=== PATIENT | male | born 1950 | race Caucasian/White ===

== ENCOUNTER 2016-10-16 13:09 | Observation (INO) | payer OTHER ==
[~2016-10-16] VITALS: Ht 190.5 cm; Wt 76.2 kg
--- NOTE | 2016-10-16 14:43 | DIAGNOSTIC IMAGING REPORT ---
PROCEDURE: CT HEAD WITHOUT CONTRAST INDICATION: MENTAL STATUS CHANGE TECHNIQUE: Noncontrast axial images with sagittal and coronal reformations. COMPARISON: None. FINDINGS: Brain and ventricles are normal. No evidence of an acute process or hemorrhage. Sinuses and mastoids are normal. IMPRESSION: 1. Negative head CT. 2. Findings discussed with Dr. Tomi Gaytan at [address] scans at this facility use dose modulation, iterative reconstruction, and/or weight-based dosing when appropriate to reduce radiation dose to as low as reasonably achievable.
--- NOTE | 2016-10-16 16:09 | DIAGNOSTIC IMAGING REPORT ---
PROCEDURE: CTA THORAX ABDOMEN INDICATION: Chest and abdominal pain. Cardiac history. Assess for dissection. TECHNIQUE: 116 ml of Isovue 370 injected intravenously and axial images were obtained through the entire thorax and abdomen with 3D MIP sagittal and coronal reformations. COMPARISON: None. FINDINGS: THORACIC VESSELS: Mild calcified atheromatous changes. No evidence of aneurysm or dissection. Central pulmonary vessels are normal and there is no evidence of pulmonary embolus, although subtle emboli in the periphery may be difficult to exclude. THORAX: Status post mediastinotomy and coronary artery bypass graft. Heart and mediastinum are normal size. Lungs are clear. Moderate mucosal thickening of the mid and distal esophagus. ABDOMEN VESSELS: Mild to moderate atheromatous changes of the aorta, most pronounced distally). No evidence of aneurysm or dissection. Mild calcified atheromatous change of the celiac access with marked calcified atheromatous changes of the splenic artery. Mild calcified atheromatous change of the superior mesenteric artery without stenosis. Renal arteries appear normal. ABDOMEN: Gallbladder, liver, spleen, pancreas, and kidneys are normal. There is a 20% subacute compression fracture of the superior endplate at T12 with mild to moderate degenerative changes of the lower lumbar spine. IMPRESSION: THORAX VESSELS: 1. Mild calcified atheromatous changes of the thoracic aorta, but no evidence of aneurysm or dissection. 2. No evidence of central pulmonary embolus. THORAX: 1. Status post coronary artery bypass graft. 2. Moderate mucosal thickening of the distal esophagus (consider reflux esophagitis). ABDOMINAL VESSELS: 1. Mild to moderate calcified atheromatous changes of the abdominal aorta. No evidence of aneurysm or dissection. 2. Mild calcified atheromatous changes of the mesenteric vessels with marked calcified changes of the splenic artery. ABDOMEN: 1. There is a 20% subacute or old compression fracture of the T12 vertebral body. 2. Otherwise negative CT abdomen. Findings were discussed with Dr. oTmi Gaytan. All CT scans at this facility use dose modulation, iterative reconstruction, and/or weight-based dosing when appropriate to reduce radiation dose to as low as reasonably achievable.
--- NOTE | 2016-10-16 17:21 | ED ORDER SUMMARY ---
..... Patient: CLARISSA PAYNE OrderSheet [facility] VisitID: [id number] [address] [place] [address] 66y, M Registration Date/Time: 10/16/2016 ORDER SHEET Weight: 95.2 kg Allergies: Unknown GENERAL ORDERS: Chest 2V Urgent (13:10/16/2016 Guido CARBAJAL) (Ack 13:40 Christopher) Securities Research Analyst (Continuous) (13:10/16/2016 Guido CARBAJAL) (13:35 MWinterer R.N.) CT Head w Cont (Yes) (pending) Urgent (13:10/16/2016 Guido CARBAJAL) (Ack 13:40 Christopher) (Cancelled: Other13:55 Guido CARBAJAL) CTA Thorax/Abdomen (Yes) (pending) Urgent (:10/16/2016 Guido CARBAJAL) (Ack 13:40 Christopher) (15:47 Medina) Cardiac Panel Stat (13:10/16/2016 Guido CARBAJAL) (Ack 13:37 Christopher) (13:47 KPage-Kuchan R.N.) BNP Urgent (13:10/16/2016 Guido CARBAJAL) (Ack 13:37 Christopher) (13:47 KPage-Kuchan R.N.) D-Dimer Urgent (13:10/16/2016 Guido CARBAJAL) (Ack 13:37 Christopher) (13:47 KPage-Kuchan R.N.) Amylase Urgent (13:10/16/2016 Guido CARBAJAL) (Ack 13:37 Christopher) (13:47 KPage-Kuchan R.N.) UA-Culture if indicated Urgent (13:10/16/2016 Guido CARBAJAL) (Ack 13:37 Christopher) (15:58 KPage-Kuchan R.N.) TSH Urgent (13:10/16/2016 Guido CARBAJAL) (Ack 13:37 Christopher) (13:47 KPage-Kuchan R.N.) Urine Drug Screen Urgent (13:33 10/16/2016 Guido CARBAJAL) (Ack 13:39 Christopher) (15:58 KPashaggy-Benito R.N.) Ethyl Alcohol Urgent (13:33 10/16/2016 Guido CARBAJAL) (Ack 13:39 Christopher) (13:47 KPashaggy-Renettan R.N.) CRP Urgent (13:33 10/16/2016 Guido CARBAJAL) (Ack 13:39 Christopher) (13:47 KPashaggy-Renettan R.N.) PCT (Procalcitonin) Urgent (13:33 10/16/2016 Guido CARBAJAL) (Ack 13:39 Christopher) (13:47 KPaTamara R.N.) Pulse oximeter (13:33 10/16/2016 Guido CARBAJAL) (13:35 MWinterer R.N.) EKG - ER Stat (13:33 10/16/2016 Guido CARBAJAL) (13:35 MWinterer R.N.) CT Head wo Cont Urgent (13:55 10/16/2016 Guido CARBAJAL) (Ack 14:00 Christopher) (15:47 Medina) MEDICATION ORDERS: GI Cocktail WHITE PO 50 mL (NOW) (16:10 10/16/2016 Guido CARBAJAL) (16:33 Lindsey R.N.) IV FLUIDS: IV NS : initial bolus 500 mL (1000 mL/hr), then 250 mL/hr for 2h (NOW); Routine (13:30 10/16/2016 Guido CARBAJAL) (Ack 13:47 Lindsey R.N.) (13:56 Lindsey R.N.) Zofran IV 4 mg (NOW) (13:33 10/16/2016 Guido CARBAJAL) (Ack 13:47 Lindsey R.N.) (13:56 KPaTamara R.N.) ORDER SHEET NOTES: [Electronically signed by Tomi Gaytan MD (18:05 10/16/2016)] [Electronically signed by Jasmin Mcdermott R.N. (21:37 10/16/2016)] [Electronically locked/signed by Jasmin Mcdermott R.N. (21:37 10/16/2016)]
--- NOTE | 2016-10-16 17:21 | ED NURSING NOTES ---
Clinical Report - [facility] [address] [place] [address] 10/16/2016 13:14 Patient: CLARISSA PAYNE TRIAGE Triage time 13:17 Oct 16 2016. Chief Complaint: ABDOMINAL PAIN and (admit staff called out for a pt dropped off by grandson that was unable to provide birthdate. pt reports "my grandaujavierter kicked me out this morning" pt c/o abd pain and reports hx of pancreatitis- pt a/o to self and place). --13:30 Jasmin Mcdermott R.N. 13:17 10/16/16. BP: 163/97. HR: 128. RR: 21. O2 saturation: 96%. Temp: 98.4 F. Main-Baird pain scale: 8/10. Additional comments: pt unable to comprehend the pain scale. --13:30 Jasmin Mcdermott R.N. Weight: 95.2 kg. Height/Length: 75 inches. BMI: 26.2. --13:29 Jasmin Mcdermott R.N. Medications Sertraline HCl Oral (rec call from daughter with med list, no dosages provided). --14:00 Jasmin Mcdermott R.N. Lisinopril Oral. --14:01 Jasmin Mcdermott R.N. Plavix Oral. --14:01 Jasmin Mcdermott R.N. Metoprolol Tartrate Oral. --14:01 Jasmin Mcdermott R.N. Levodopa/carvidopa. --14:02 Jasmin Mcdermott R.N. Advair Diskus Inhalation. --14:02 Jasmin Mcdermott R.N. Albuterol Sulfate ER Oral. --14:02 Jasmin Mcdermott R.N. Aspirin Oral. --14:02 Page-Kuchan, Karyol, R.N. Diazepam Oral. --14:02 Jasmin Mcdermott R.N. The following entry was struck by Jasmin Mcdermott R.N., 14:00 (10/16/16) Reason - other. <<STRICKEN ENTRY-- Unknown. --13:29 Jasmin Mcdermott R.N. --END STRIKE>>. Allergies Unknown. --13:29 Jasmin Mcdermott R.N. History Arrived by private vehicle, and accompanied by (pt dropped off by grandson). Onset. (unknown). He has had abdominal pain. Treatment ANIMAL CARE TECHNICIAN: (unknown). SOCIAL HX: Smoker- current status unknown (presents with cigarettes in his pocket). Alcohol use. (denies). He has had contact with a sick individual. (unknown). SELF HARM ASSESSMENT: A self harm assessment was performed. Unable to assess the patient in regard to the question "Do you have thoughts of harming or killing yourself?". FALL RISK ASSESSMENT: Fall risk assessment completed. Risk factors identified include patient age greater than 65 years and impairment of mobility and cognition. Fall interventions initiated. Patient placed on stretcher. Side rails up x2. Brakes on Bed in low position. Patient visible from nurses' station and identified as a fall risk by ID band. Call light in reach of patient. Instructed not to get up without assistance. FUNCTIONAL ASSESSMENT: Functional assessment performed: uses walker. pt reports he uses a fww, however "they didn't bring it with me" referring to family members, pt consistent in his story that his grandaughter "kicked me out this morning". --13:30 Jasmin Mcdermott R.N. PROBLEMS: Unknown. --13:30 Jasmin Mcdermott R.N. Heart Disease. Depression. Hypertension. Parkinson's Disease. --14:04 Jasmin Mcdermott R.N. ADDITIONAL SURGERIES: Unknown. --13:30 Jasmin Mcdermott R.N. Interventions ID band on patient. --13:30 Jasmin Mcdermott R.N. PHYSICAL ASSESSMENT To room via wheelchair. Patient gowned. GENERAL / NEURO / PSYCH: Appears anxious. The patient is disoriented to place and time. HEENT: Mucous membranes are pink. RESPIRATORY: Respirations not labored. CVS: Cardiac rhythm: sinus tachycardia. GI / : Abdomen soft. Bowel sounds within normal limits. SKIN: Skin is warm. Skin is slightly diaphoretic. --13:31 Jasmin Mcdermott R.N. NURSING PROGRESS NOTES Cardiac rhythm: sinus tachycardia. alarm security or surveillance monitor, pulse oximeter and NIBP monitor placed on patient; manager monitoring- Lead II, aVF and V5; monitor alarms on. Patient identifiers checked. Call light placed in reach. Side rails up x 2. Bed placed in lowest position. Brakes of bed on. --13:31 Jasmin Mcdermott R.N. 13:27 10/16/2016 Site #1 started via IV in the right hand with an 18g angiocath; one attempt. Blood drawn: rainbow set. Labeled in the presence of the patient and sent to the lab. Saline lock flushed with 10 mL saline. --13:32 Jasmin Mcdermott R.N. 13:31 10/16/16. Glucose: 115. --13:46 Jasmin Mcdermott R.N. 13:50 10/16/2016 Zofran (Ondansetron HCl) IVP 4 mg given. via site #1. Allergies verified and confirmed 5 rights. IV patency established. IV site checked: no pain, redness, or swelling. IV flushed thoroughly pre- and post-medication administration. IVP given by RN. --13:56 Jasmin Mcdermott R.N. 13:51 10/16/2016 Started bag #1 500 mL IV Fluids IV NS (Saline); at 500 mL/hr via site #1. Allergies verified and confirmed 5 rights. IV patency established. IV site checked: no pain, redness, or swelling. IV flushed thoroughly pre- and post-medication administration. Completed per protocol. --13:56 Jasmin Mcdermott R.N. ( lithopone charger placed call to pts family, correction it is his daughter [place] and pt does confirm. pts mother called and pt refused to speak with her). --14:05 Jasmin Mcdermott R.N. 14:12 10/16/16. ( Placed call to patient's family (phone number left on a piece of paper in patient's pocket). Person answering states she is [place], the patient's daughter. She states the patient has been living with her but has become more emotional over the past 4-5 days. She states her father has been refusing medications, having outbursts and yelling at her, stating he doesn't want to live with her anymore. She states he "snapped" and insisted that he was leaving. Daughter tearful on the phone. States she had her (Gulshan) drive pt to the ED. She was able to give med list and some mhx.). --14:12 Geraldine Bunch R.N. 14:17 10/16/2016 Site #2 started via IV in the left wrist with an 18g angiocath; one attempt. Saline lock flushed with 10 mL saline. --14:22 Jasmin Mcdermott R.N. ( pt required iv site above wrist for study, 2nd site placed). --14:22 Jasmin Mcdermott R.N. Patient identifiers checked. Call light placed in reach. Side rails up x 2. Bed placed in lowest position. Brakes of bed on. --14:23 Jasmin Mcdermott R.N. Cardiac rhythm: sinus tachycardia. --14:29 Jasmin Mcdermott R.N. 14:28 10/16/16. BP: 124/72. HR: 101. RR: 19. O2 saturation: 94%. --14:29 Jasmin Mcdermott R.N. 16:33 10/16/2016 GI COCKTAIL WHITE (Simethicone) PO 50 mL given. Allergies verified and confirmed 5 rights. --16:33 Jasmin Mcdermott R.N. Patient identifiers checked. Call light placed in reach. Side rails up x 2. Bed placed in lowest position. Brakes of bed on. ( pt voided 350ml dark yellow urine). --17:25 Jasmin Mcdermott R.N. 16:53 10/16/2016 Zofran IVP Response: no adverse reaction symptoms are the same. The patient feels the same. --17:53 Jasmin Mcdermott R.N. 17:53 10/16/2016 IV Fluids IV NS Discontinued: infused. Total amount infused: 1000 mL. IV patency established. IV site checked: no pain, redness, or swelling. IV flushed thoroughly. --17:53 Jasmin Mcdermott R.N. 17:53 10/16/2016 GI COCKTAIL WHITE PO Response: no adverse reaction pain is gone now. Symptoms have improved the patient feels better. --17:53 Jasmin Mcdermott R.N. DISPOSITION / DISCHARGE Report was given to a nurse via a phone call. Report included patient's care, treatment, medications, reviewed medication reconcilliation, and condition (including any recent changes or anticipated changes). All questions were answered. Report was acknowledged and care was transferred. (Ronda CHEN). Patient's personal items include: shirt, pants, coat and shoes, bagged/tagged; items were placed in belongings bag and transported with the patient. --17:43 Jasmin Mcdermott R.N. 17:38 10/16/16. BP: 140/76. HR: 97. RR: 17. O2 saturation: 95%. Main-Baird pain scale: 0/10. --17:43 Jasmin Mcdermott R.N. Locked/Released at 10/16/2016 21:37 by Jasmin Mcdermott R.N.
--- NOTE | 2016-10-16 17:21 | ED CLINICAL REPORT ---
Clinical Report - Physicians/Mid Levels [address] [place] [address] 10/16/2016 13:14 Patient: CLARISSA PAYNE Time Seen: 13:20 Oct 16 2016. Arrived- By private vehicle. Historian- patient (Dropped off by Grandson who left the area.). History limited by altered mental status, poor comprehension, vague historian and confusion. Physical Exam limited by altered mental status, poor comprehension and confusion. CPT: ER phys charges level 5 plus (#[id number]). EKG interpretation (#[id number]). HISTORY OF PRESENT ILLNESS Chief Complaint: ABDOMINAL PAIN and Confusion. At its maximum, severity described as moderate. When seen in the E.D., severity described as moderate. Modifying factors- worsened by movement. Not relieved by anything. It is described as located in the epigastric area and in the upper abdomen. This started today and is still present. The patient has had nausea, loss of appetite and vomiting. No diarrhea. No recent travel. Similar symptoms previously: None. Recent medical care: Not recently seen/assessed. REVIEW OF SYSTEMS No constipation, black stools, hematemesis, difficulty with urination or pain with urination. No urinary frequency, fever, headache or sore throat or throat. No chest pain, difficulty breathing, cough, joint pain or skin rash. No chills, back pain, diabetic symptoms or easy bruising. All systems otherwise negative, except as recorded above. PAST HISTORY Unable to get a history from the patient or daughter. Sternal scar present. Heart Disease. Depression. Hypertension. Parkinson's Disease. No history of peptic ulcer. No history of gallstones. Medications: Diazepam Oral. Aspirin Oral. Albuterol Sulfate ER Oral. Advair Diskus Inhalation. Levodopa/carvidopa. Metoprolol Tartrate Oral. Plavix Oral. Lisinopril Oral. Sertraline HCl Oral (rec call from daughter with med list, no dosages provided). Allergies: Unknown. SOCIAL HISTORY Light tobacco smoker (cigarette)- less than 1/2 a pack per day. No alcohol use. ADDITIONAL NOTES The nursing notes have been reviewed. PHYSICAL EXAM Vital Signs: 10/16/2016 13:17 BP: 163/97. HR: 128. RR: 21. O2 saturation: 96%. Temp: 98.4 F. Main-Baird pain scale: 8/10. Appearance: Alert. No acute distress. Eyes: Pupils equal, round and reactive to light. Eyes normal inspection. ENT: Dry mucous membranes present. Pharynx normal. Neck: Normal inspection. No carotid bruit, lymphadenopathy or meningeal signs. CVS: Normal heart rate and rhythm. Heart sounds normal. Pulses normal. No cardiac murmur. Respiratory: No respiratory distress. Breath sounds normal. Chest nontender. Abdomen: Soft. Moderate tenderness in the epigastric area with guarding present. Bowel sounds normal. No mass. Femoral pulses equal. (no bruit heard.). Back: Normal inspection. No CVA tenderness. Skin: Skin warm. Normal skin color. No rash. Extremities: Extremities exhibit normal ROM. No calf tenderness. No lower extremity edema. Neuro: Moderately altered mental status: confused. Patient slow to respond. Eyes open spontaneously. Best verbal response: disoriented. Best motor response: obeys commands. No motor deficit. No sensory deficit. LABS, X-RAYS, AND EKG EKG: Normal sinus rhythm. Rate: 134. Tachycardia. Normal P waves. Incomplete RBBB. Q waves in lead II, III and aVF consistent with inferior infarction. Left axis deviation. Non-specific ST segment / T wave abnormalities. ST depression in lead I, V3, V4, V5 and V6. Prior EKG unavailable. The study has been interpreted contemporaneously. The study has been independently viewed by me. The EKG appears to be a good tracing. CT Head: No acute disease. Abdominal CT: Normal study. Reflux with esophageal thickening. T12 old compression fracture. Abdominal CT performed with IV contrast. The study was interpreted by the radiologist and discussed with the radiologist. Chest CT: Lungs normal. Great vessels normal. Mediastinum normal. No infiltrate, pneumothorax, aortic dissection or aneurysm present or pulmonary embolism. (Mucosal thickening distal esophagus.). Chest CT performed with contrast. The study was independently viewed by me, interpreted by the radiologist and discussed with the radiologist. Laboratory Tests: UA-Culture if indicated: (PHILIP: 10/16/2016 15:51) ( MsgRcvd 10/16/2016 16:20) Final results Test Result Flag Units (Reference) URINE COLOR YELLOW URINE APPEARANCE CLEAR URINE GLUCOSE NEGATIVE (NEGATIVE) URINE BILIRUBIN ICTOTEST NEGATIVE (NEGATIVE) URINE KETONE 1+ (NEGATIVE) URINE SPECIFIC GRAVITY 1.010 (1.010-1.030) URINE PH 6.0 (5.0-8.0) URINE PROTEIN NEGATIVE (NEGATIVE) URINE UROBILINOGEN 0.2 EU/dL (0.2-1.0) URINE NITRITE NEGATIVE (NEGATIVE) URINE BLOOD NEGATIVE (NEGATIVE) URINE LEUK ESTERASE NEGATIVE (NEGATIVE) URINE RBC 0-1 rbc/hpf (0-1) URINE WBC 0-1 wbc/hpf (0-1) URINE EPITHELIAL CELLS RARE EPI/hpf (0-5) URINE BACTERIA NONE SEEN (NONE SEEN) URINE COMMENT CULT NOT INDICATED URINE CULTURES ARE SET-UP BASED ON THE FOLLOWING CRITERIA:POSITIVE NITRITEPOSITIVE LEUKOCYTE ESTERASEGREATER THAN 10 WHITE BLOOD CELLSMODERATE (2+) OR GREATER BACTERIA CBC w Diff: (PHILIP: 10/16/2016 13:31) ( [facility] 10/16/[place] 13:54) Final results Test Result Flag Units (Reference) WHITE BLOOD COUNT 13.1 H K/uL (4.5-11.5) RED BLOOD COUNT 5.21 M/uL (4.50-5.90) HEMOGLOBIN 17.0 gm/dL (13.5-17.5) HEMATOCRIT 51.1 % (41.0-53.0) MEAN CELL VOLUME 98 fL (80-100) MEAN CORPUSCULAR HGB 33 pg (26-34) MEAN CORPUSCULAR HGB CONC 33 g/dL (31-37) RED CELL DISTRIBUTION WIDTH 13.4 % (11.6-14.8) PLATELET COUNT 203 K/uL (150-400) NEUTROPHIL % 73.9 % (50-75) LYMPH % 17.0 L % (25-40) MONO % 8.5 % (3-14) EOSINOPHIL % 0.3 % (0-4) BASOPHIL % 0.3 % (0-2) [id number]: (PHILIP: 10/16/2016 13:31) ( [facility] 10/16/2016 14:24) Final results Test Result Flag Units (Reference) D-DIMER QUANTITATIVE 0.30 ug/mLFEU (0.27-0.52) The primary value of this quantitative assay relates toits negative predictive value (i.e. exclusion) of pulmonaryembolism/deep vein thrombosis/DIC.Elevated levels of d-dimer may also occur with:, age, cancer, inflammation, liver disease,post-op, infection, hematoma, coronary disease, peripheralarteriopathy, bleeding disorders and thrombolytic treatment.Results should be correlated with other clinical andradiological data.Testing Methodology: Latex Immunoassay Urine Drug Screen: (PHILIP: 10/16/2016 15:51) ( MsgRcvd 10/16/2016 16:21) Final results Test Result Flag Units (Reference) AMPHETAMINE/METHAMPHETAMINE NEGATIVE (NEGATIVE) BARBITURATE NEGATIVE (NEGATIVE) BENZODIAZEPINE POSITIVE H (NEGATIVE) CANNABINOID POSITIVE H (NEGATIVE) COCAINE NEGATIVE (NEGATIVE) ECSTASY NEGATIVE (NEGATIVE) METHADONE NEGATIVE (NEGATIVE) OPIATE NEGATIVE (NEGATIVE) The urine drug screen is a qualitative screening test fordrug overdose and abuse. All screen results should beconsidered as presumptive.Drugs screened for are as follows:BenzodiazepinesCocaineAmphetamines/MetamphetaminesTHC (Tetrahydrocannabinol)OpiatesBarbituratesEcstasyMethadonePositive results are unconfirmed. For confirmation, notifythe lab for the specimen to be sent to the reference lab.All confirmations must be performed by a differentmethodology.The ingestion of natural herbal and plant productscontaining Ephedra/Ephedra metabolites can produce in urineone or more substances capable of cross reacting withamphetamine/methamphetamine immunoassays. These testsprovide a preliminary result only. A more specificalternative chemical method must be used to obtain aconfirmed analytical result. BNP: (PHILIP: 10/16/2016 13:31) ( MsgRcvd 10/16/2016 14:26) Final results Test Result Flag Units (Reference) B-TYPE NATRIURETIC PEPTIDE 32 pg/ml (5-100) [id number]: (PHILIP: 10/16/2016 13:31) ( MsgRcvd 10/16/2016 16:08) Final results Test Result Flag Units (Reference) PROCALCITONIN <0.5 ng/mL (0-0.5) PCT Concentration: Interpretation : Risk/option for action PCT <=0.5 ng/mL : Systemic : Low risk forinfection(sepsis): progression to severeis not likely. : systemic infection.Local bacterial : CAUTION-PCT levelsinfection is : below 0.5 ng/mL do notpossible. : exclude an infection,because localizedinfections (withoutsystemic signs) may beassociated with suchlow levels. If PCT ismeasured very earlyafter a bacterialchallenge (usually <6hours), these valuesmay still be low. Inthis case PCT shouldbe re-assessed 6-24hours later. PCT >0.5 and : Systemic infection: Moderate risk for<= 2 ng/mL : (sepsis) is : progression to severepossible, but : systemic infection.other conditions : The patient should beare known to : closely monitoredelevate PCT. : both clinically andby re-assessing PCTwithin 6-24 hours. PCT > 2 ng/mL : Systemic infection: High risk for(sepsis) is likely: progression to severeunless other : systemic infection.causes are known. : PCT >= 10 ng/mL : Important systemic: High likelihood ofinflammatory : severe sepsis orresponse, almost : septic shock.exclusively due to:severe bacterial :sepsis or septic :shock. : Amylase: (PHILIP: 10/16/2016 13:31) ( [facility] 10/16/2016 14:56) Final results Test Result Flag Units (Reference) AMYLASE 20 L U/L (25-115) ETHYL ALCOHOL < 3 L mg/dL (3-10) THYROID STIMULATING HORMONE 1.941 uIU/mL (0.30-3.74) C-REACTIVE PROTEIN 0.2 mg/dL (0.0-0.9) CHEM 13 PANEL: (PHILIP: 10/16/2016 13:31) ( [facility] 10/16/2016 14:23) Final results Test Result Flag Units (Reference) GLUCOSE 121 H mg/dL (70-110) BUN 24 H mg/dL (7-18) CREATININE 1.6 H mg/dL (0.6-1.3) Estimated GFR 46.19 mL/min Estimated GFR- 55.99 mL/min Note: Persistent reduction over 3 months in eGFR<60 mL/min/1.73 m2 defines CKD. Patients with eGFR values>=60 mL/min/1.73 m2 may also have CKD if evidence ofpersistent proteinuria. Additional information may be foundat www.kidney.org. SODIUM 137 mmol/L (136-145) POTASSIUM 3.9 mmol/L (3.5-5.1) CHLORIDE 96 L mmol/L (98-107) CARBON DIOXIDE 21 mmol/L (21-32) CALCIUM 9.8 mg/dL (8.5-10.1) TOTAL PROTEIN 8.2 g/dL (6.4-8.2) ALBUMIN 4.1 g/dL (3.3-5.0) BILIRUBIN, TOTAL 0.8 mg/dL (0.0-1.0) ALKALINE PHOSPHATASE 105 U/L (46-116) AST (SGOT) 19 U/L (15-37) ALT (SGPT) 21 U/L (12-78) MAGNESIUM 2.1 mg/dL (1.8-2.4) CPK 104 U/L (24-260) TROPONIN I <0.05 L ng/mL (0.00-1.5) TROPONIN REFERENCE RANGE:<0.1 NEGATIVE0.1-1.5 INDETERMINANT>1.5 POSITIVE . PROGRESS AND PROCEDURES Course of Care: Heplock IV NS Zofran 4 mg IV Daughter calls and says he has no place to go. He refuses to stay with her. Patient has confusion of unclear etiology. He also has abdominal pain of unclear etiology. Discussed case with on-call health care provider. Reviewed test results. Agreed upon treatment plan and decision to admit. Health care provider will see patient in ED. Patient/family counseled. Old medical records ordered. Disposition orders written. Disposition: Admitted to Acute Care. CLINICAL IMPRESSION Acute epigastric abdominal pain of unknown cause. Confusion of unclear etiology. (Electronically signed by Tomi Gaytan MD 10/16/2016 18:05)
--- NOTE | 2016-10-16 17:21 | ED ORDER SUMMARY ---
..... Patient: CLARISSA PAYNE OrderSheet VisitID: [id number] [address] [place] [address] 66y, M Registration Date/Time: 10/16/2016 ORDER SHEET Weight: 95.2 kg Allergies: Unknown GENERAL ORDERS: Chest 2V Urgent (13:10/16/2016 Guido CARBAJAL) (Ack 13:40 Christopher) Instrument And Control Technician (Continuous) (13:10/16/2016 Guido CARBAJAL) (13:35 MWinterer R.N.) CT Head w Cont (Yes) (pending) Urgent (13:10/16/2016 Guido CARBAJAL) (Ack 13:40 Christopher) (Cancelled: Other13:55 Guido CARBAJAL) CTA Thorax/Abdomen (Yes) (pending) Urgent (:10/16/2016 Guido CARBAJAL) (Ack 13:40 Christopher) (15:47 Medina) Cardiac Panel Stat (13:10/16/2016 Guido CARBAJAL) (Ack 13:37 Christopher) (13:47 KPage-Kuchan R.N.) BNP Urgent (13:10/16/2016 Guido CARBAJAL) (Ack 13:37 Christopher) (13:47 KPage-Kuchan R.N.) D-Dimer Urgent (13:10/16/2016 Guido CARBAJAL) (Ack 13:37 Christopher) (13:47 KPage-Kuchan R.N.) Amylase Urgent (13:10/16/2016 Guido CARBAJAL) (Ack 13:37 Christopher) (13:47 KPage-Kuchan R.N.) UA-Culture if indicated Urgent (13:10/16/2016 Guido CARBAJAL) (Ack 13:37 Christopher) (15:58 KPage-Kuchan R.N.) TSH Urgent (13:10/16/2016 Guido CARBAJAL) (Ack 13:37 Christopher) (13:47 KPage-Kuchan R.N.) Urine Drug Screen Urgent (13:33 10/16/2016 Guido CARBAJAL) (Ack 13:39 Christopher) (15:58 KPashaggy-Benito R.N.) Ethyl Alcohol Urgent (13:33 10/16/2016 Guido CARBAJAL) (Ack 13:39 Christopher) (13:47 KPashaggy-Renettan R.N.) CRP Urgent (13:33 10/16/2016 Guido CARBAJAL) (Ack 13:39 Christopher) (13:47 KPashaggy-Renettan R.N.) PCT (Procalcitonin) Urgent (13:33 10/16/2016 Guido CARBAJAL) (Ack 13:39 Christopher) (13:47 KPaTamara R.N.) Pulse oximeter (13:33 10/16/2016 Guido CARBAJAL) (13:35 MWinterer R.N.) EKG - ER Stat (13:33 10/16/2016 Guido CARBAJAL) (13:35 MWinterer R.N.) CT Head wo Cont Urgent (13:55 10/16/2016 Guido CARBAJAL) (Ack 14:00 Christopher) (15:47 Medina) MEDICATION ORDERS: GI Cocktail WHITE PO 50 mL (NOW) (16:10 10/16/2016 Guido CARBAJAL) (16:33 Lindsey R.N.) IV FLUIDS: IV NS : initial bolus 500 mL (1000 mL/hr), then 250 mL/hr for 2h (NOW); Routine (13:30 10/16/2016 Guido CARBAJAL) (Ack 13:47 Lindsey R.N.) (13:56 Lindsey R.N.) Zofran IV 4 mg (NOW) (13:33 10/16/2016 Guido CARBAJAL) (Ack 13:47 Lindsey R.N.) (13:56 KPaTamara R.N.) ORDER SHEET NOTES: [Electronically signed by Tomi aGytan MD (18:05 10/16/2016)] [Electronically signed by Jasmin Mcdermott R.N. (21:37 10/16/2016)] [Electronically locked/signed by Jasmin Mcdermott R.N. (21:37 10/16/2016)]
[2016-10-16 18:06] VITALS: BP 123/81
--- NOTE | 2016-10-16 18:46 | History & Physical Report ---
History Chief Complaint Abdominal pain History of Present Illness This is a 66-year-old white male who developed abdominal pain for last 5 days along with nausea. He also vomited twice. Normal bowel movements. No fever but had some chills. Patient also mildly confused. Patient was dropped off by her family to the emergency room. Patient History 1. COPD (chronic obstructive pulmonary disease) 2. CAD (coronary artery disease) 3. HTN (hypertension) 4. GERD (gastroesophageal reflux disease) 5. Parkinson disease Social History Patient is has 1 daughter. He leaves with his daughter and he states that his daughter told her this time for him to leave. Smoking: None, alcohol: None, illicit drugs: None. Family History No Known Family History. Medications and Allergies Medications Current Medications Sig/Jerome Start time Last Dose Route Stop Time Status Admin 325 MG DAILY 10/17 899 UNV Asprin PO Plavix 75 MG DAILY 10/17 899 UNV PO Lisinopril 20 MG DAILY 10/17 899 UNV PO 50 MG DAILY 10/17 899 UNV Zoloft PO 50 MG DAILY 10/17 899 UNV Metoprolol PO See Dose RTQID 10/17 1999 UNi Albuterol Insts (1) IN See Dose RTBID 10/17 1999 UNi Levodopa/carbidopa Insts (2) IN 5 MG TID PRN 10/16 1800 UNV Diazepam PO Dose Instructions: (1)Albuterol: 1 - 2 PUFFS (2)Fluticasone/Salmeterol: 1 CLICK Allergies Coded Allergies: NKA (10/16/16) Review of Systems Other No recent weight changes, no difficulty with hearing or vision, runny nose but no cough congestion or sore throat, no chest pain no dyspnea no palpitations, epigastric pain, no dysuria or frequency no incontinence, complains of back pain and leg pain, complains of headaches and dizziness no tingling no numbness no localized weakness no syncope Physical Exam General Appearance Alert, Cooperative, No acute distress HEENT Normal exam Lungs Clear to auscultation Neck Supple, No JVD, No lymphadenopathy Cardiovascular Regular rate and rhythm, Normal S1 and S2, No murmurs, gallops, rubs Abdomen Normal bowel sounds (Tenderness in Epigastrium), Soft Extremities No cyanosis, No edema, Normal pulses Skin No Rashes, No Significant Lesions Neurological Normal speech, Reflexes 2+ and equal, Cranial nerves intact, Strength 5/5 x4 ext's (Alert, oriendted to place only) Psych/Mental Status Mood normal Assessment and Plan Problem List 1. Epigastric pain Plan Ethiology is not know, all work up are negative, possibly due to GEERD 2. Dehydration Plan Patient will continue with IV hydration cautiously 3. COPD (chronic obstructive pulmonary disease) Plan Stable continue inhalers 4. HTN (hypertension) Plan Controlled continue outpatient medications 5. Parkinson disease Plan Stable
--- NOTE | 2016-10-16 18:47 | NUR ---
PATIENT ADMITED TO THE FLOOR AT 1800. ALERT AND ORIENTED TO SELF ONLY. VERY CONFUSED AND SCARED. VSS AT THIS TIME. WILL CONTINUE TO MONITOR.
--- NOTE | 2016-10-16 18:51 | Progress Note ---
Subjective General ADVANCED CARE PLAN History of Present Illness This is a 66-year-old white male who developed abdominal pain for last 5 days along with nausea. He also vomited twice. Normal bowel movements. No fever but had some chills. Patient also mildly confused. Patient was dropped off by her family to the emergency room. A discussion was undertaken with the patient regarding previous advance care arrangements/decisions. The following advanced directives were noted by the patient and discussed with me at the time of admission. ADVANCED DIRECTIVES: 1. Living well: No 2. POLST: No 3. CODE STATUS: Full no code 4. 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 Donor card: No The patient has expressed interest in not pursuing any form of resuscitation at this time. She has opted not to pursue intubation/mechanical ventilation, CPR, electrical cardioversion, or life-sustaining efforts involving drugs at the time of cardiopulmonary arrest. The patient's wishes were documented in the chart and orders regarding the patient's wishes entered into the [employer] system. The "Advance Care Plan Document" was not distributed to patient to discuss with his family. Less than 30 minutes was spent in performing the above tasks and documentation of the patient's advanced care plan.
--- NOTE | 2016-10-16 21:37 | ED MAR SUMMARY ---
..... Medication Administration Record [facility] [address] [place] [address] Patient: CLARISSA PAYNE Visit ID: [id number] 66y, M Weight: 95.2 kg Height/Length: 75 in BMI: 26.2 ALLERGIES: Unknown Given 13:50 10/16/2016 Jasmin Mcdermott R.N. Medication Administered: ZOFRAN [IVP] (ONDANSETRON HCL), Dose: 4 mg IVP, Site: #1 right hand. Medication Ordered: Zofran IV 4 mg (NOW). Start 13:51 10/16/2016 Jasmin Mcdermott R.N., Stop 17:53 10/16/2016 Jasmin Mcdermott R.N. Medication Administered: IV NS (SALINE), Dose: IV Fluids, Rate: 500 mL/hr, Dispensed: 500 mL bag, Site: #1 right hand. Medication Ordered: IV NS : initial bolus 500 mL (1000 mL/hr), then 250 mL/hr for 2h (NOW); Routine. Given 16:33 10/16/2016 Jasmin Mcdermott R.N. Medication Administered: GI COCKTAIL WHITE [PO] (SIMETHICONE), Dose: 50 mL PO. Medication Ordered: GI Cocktail WHITE PO 50 mL (NOW).
--- NOTE | 2016-10-16 21:37 | ED DISCHARGE INSTRUCTIONS ---
Patient: CLARISSA PAYNE General Instructions [facility] VisitID: [id number] [place] [address] 66y, M Registration Date/Time: 10/16/2016 Acute epigastric abdominal pain of unknown cause. Confusion of unclear etiology. ADDITIONAL INFORMATION Abdominal Pain,Uncertain Cause [Male] Based on your visit today, the exact cause of your abdominalpain is not clear. Your exam and tests do not indicate a dangerous cause at this time. However, the signs of a serious problem may take more time to appear. Although your evaluation was reassuring today, sometimes early in the course of many conditions, exam and lab tests can appear normal. Therefore, it is important for you to watch for any new symptoms or worsening of your condition. Causes It may not be obvious what caused your symptoms. Pay attention to things that do seem to make your symptoms worse or better and discuss this with your doctor when you follow up. Diagnosis The evaluation of abdominal pain in the emergency department may onlyrequire an exam by the doctor or it may include blood, urine or imaging studies, depending on many factors. Sometimes exams and tests can identify a cause but in many cases, a clear cause is not found. Further testing at follow up visits may help to suggest a clear diagnosis. Home Care Rest as much as possible until your next exam. Try to avoid any medications (unless otherwise directed by your doctor), foods, activities, or other factors that you may have contributed to your symptoms. Try to eat foods that you know that you have tolerated well in the past. Certain diets may be recommended for some conditions that cause abdominal pain. However, since the cause of your symptoms may not be clear, discuss your diet more with your primary care provider or specialist for further recommendations. Eating several small meals per day as opposed to 2 or 3 larger meals may help. Monitor closely for anything that may make your symptoms worse or better. Pay close attention to symptoms below that may indicate worsening of your condition. Follow Up and Precautions See your doctoras instructed or sooneror if your symptoms are not improving.In some cases, you may need more testing. When to Seek Medical Attention Contact your doctor or see medical attention ifany of the following occur: Pain is becoming worse You are unable to take your medications due to excessive vomiting Swelling of the abdomen Fever of 100.4F (38C) or higher, or as directed by your health care provider Blood in vomit or bowel movements (dark red or black color) Jaundice (yellow color of eyes and skin) New onset of weakness, dizziness or fainting New onset of chest, arm, back, neck or jaw pain You have been given the following additional information: Abdominal Pain, Unknown Cause, (Male) (Electronically signed by Tomi Gaytan MD 10/16/2016 18:05)
--- NOTE | 2016-10-16 21:37 | ED MED RECONCILIATION SUMMARY ---
Patient: CLARISSA PAYNE Medication Reconciliation Report [facility] VisitID: [id number] [address] [place] [address] 66y, M Registration Date/Time: 10/16/2016 Weight: 95.2 kg Height/Length: 75 in. BMI: 26.2 ALLERGIES: Unknown The patient's Home Medications are listed below: THE FOLLOWING MEDICATIONS NEED TO BE RECONCILED: Advair Diskus Inhalation Albuterol Sulfate ER Oral Aspirin Oral Diazepam Oral Levodopa/carvidopa Lisinopril Oral Metoprolol Tartrate Oral Plavix Oral Sertraline HCl Oral, rec call from daughter with med list, no dosages provided The source(s) of the original Home Medication information: Not obtained. The following Medications were given to the patient in the Emergency Department: Zofran [IVP] IVP 4 mg, administered: 10/16/2016 1:50:00 PM IV NS IV Fluids bolus 0, then 500 mL/hr, administered: 10/16/2016 1:51:00 PM GI COCKTAIL WHITE [PO] PO 50 mL, administered: 10/16/2016 4:33:00 PM The following Medications were prescribed to the patient: None.
--- NOTE | 2016-10-16 21:37 | ED MAR SUMMARY ---
..... Medication Administration Record [facility] [address] [place] [address] Patient: CLARISSA PAYNE Visit ID: [id number] 66y, M Weight: 95.2 kg Height/Length: 75 in BMI: 26.2 ALLERGIES: Unknown Given 13:50 10/16/2016 Jasmin Mcdermott R.N. Medication Administered: ZOFRAN [IVP] (ONDANSETRON HCL), Dose: 4 mg IVP, Site: #1 right hand. Medication Ordered: Zofran IV 4 mg (NOW). Start 13:51 10/16/2016 Jasmin Mcdermott R.N., Stop 17:53 10/16/2016 Jasmin Mcdermott R.N. Medication Administered: IV NS (SALINE), Dose: IV Fluids, Rate: 500 mL/hr, Dispensed: 500 mL bag, Site: #1 right hand. Medication Ordered: IV NS : initial bolus 500 mL (1000 mL/hr), then 250 mL/hr for 2h (NOW); Routine. Given 16:33 10/16/2016 Jasmin Mcdermott R.N. Medication Administered: GI COCKTAIL WHITE [PO] (SIMETHICONE), Dose: 50 mL PO. Medication Ordered: GI Cocktail WHITE PO 50 mL (NOW).
--- NOTE | 2016-10-16 21:37 | ED MED RECONCILIATION SUMMARY ---
Patient: CLARISSA PAYNE Medication Reconciliation Report [facility] VisitID: [id number] [address] [place] [address] 66y, M Registration Date/Time: 10/16/2016 Weight: 95.2 kg Height/Length: 75 in. BMI: 26.2 ALLERGIES: Unknown The patient's Home Medications are listed below: THE FOLLOWING MEDICATIONS NEED TO BE RECONCILED: Advair Diskus Inhalation Albuterol Sulfate ER Oral Aspirin Oral Diazepam Oral Levodopa/carvidopa Lisinopril Oral Metoprolol Tartrate Oral Plavix Oral Sertraline HCl Oral, rec call from daughter with med list, no dosages provided The source(s) of the original Home Medication information: Not obtained. The following Medications were given to the patient in the Emergency Department: Zofran [IVP] IVP 4 mg, administered: 10/16/2016 1:50:00 PM IV NS IV Fluids bolus 0, then 500 mL/hr, administered: 10/16/2016 1:51:00 PM GI COCKTAIL WHITE [PO] PO 50 mL, administered: 10/16/2016 4:33:00 PM The following Medications were prescribed to the patient: None.
[2016-10-16 22:50] VITALS: BP 112/63
--- NOTE | 2016-10-16 23:09 | NUR ---
Pt. is resting in bed at this time, awake but calm. Tremors noted. Pt. is alert to self only. Unable to complete admission database due to patient unable to answer questions appropriately, no family contact known. Pt. HR went up to 160's for approx 10 seconds but came back down to sinus rhythm in the 80's-90's, with PVCs. Notified MD Gonzáles, per MD Gonzáles, continue to monitor. Bed alarm on. Pt. using urinal to void. WCTM.
[2016-10-17 02:24] VITALS: BP 126/75
--- NOTE | 2016-10-17 02:59 | NUR ---
Pt. is currently resting in bed at this time. Administered diazepam d/t pt. becoming anxious. Pt. continues to be pleasantly confused. Is oriented to self only. Attempted to ask admission database questions, pt. answers many questions by saying "I dont know" or "I dont remember." Tele shows NSR with HR in 80's/90's. States abdominal pain is ok at this time, denies the need for pain medication. Bed alarm on. WCTM.
[2016-10-17 06:50] VITALS: BP 103/54
[2016-10-17] MEDS ORDERED: ADVAIR DISKU1 INH (07:38)
[2016-10-17] MEDS ORDERED: ASPIRIN ADULT L81 MG PO (07:39)
[2016-10-17] MEDS ORDERED: DIAZEPAM2 MG PO (07:39)
[2016-10-17] MEDS ORDERED: PROAIR HFA IN (07:39)
[2016-10-17] MEDS ORDERED: CARBIDOPA/LEVOD1 TA1 PO (07:39)
--- NOTE | 2016-10-17 07:39 | Progress Note ---
Subjective General Note Date: October 17, 2016 Admission Date: October 16, 2016 Hospital Day: 2 PCP: None Status: Inpatient, ACU Advanced Directive: NO CODE Room: 206 Admission History: The patient is a 66-year-old white male with a significant past medical history of COPD, coronary artery disease, hypertension, gastroesophageal reflux, Parkinson's disease, who presented to [facility] emergency department secondary to complaints of epigastric pain. [facility] ER evaluation was consistent with epigastric pain rule out GI origin and dehydration. Secondary to the above, the patient was admitted by Víctor Gonzáles M.D. for further evaluation and treatment. For other history present illness, past medical history, family history, social history, review of systems, and admission physical examination please see the patient's history and physical examination and ER visit note in the patient's medical record. Subjective: The patient states he is doing much better today. No significant abdominal pain at this time. No recent nausea or vomiting. Patient requests: None Medications and Allergies Medications Current Medications Sig/Jerome Start time Last Medication Dose Route Stop Time Status Admin Aspirin 325 MG DAILY 10/17 899 AC PO Clopidogrel Bisulfate 75 MG DAILY 10/17 899 AC PO Lisinopril 20 MG DAILY 10/17 899 AC PO Metoprolol Succinate 50 MG DAILY 10/17 899 AC PO Sertraline HCl 50 MG DAILY 10/17 899 AC PO Pantoprazole Sodium 40 MG DAILY@0600 10/17 0600 AC 10/17 IV 0525 Carbidopa/Levodopa 1 TAB TID 10/16 2200 AC 10/17 PO 0525 Heparin Sodium 5,000 UNITS BID 10/16 2100 AC 10/16 (Porcine) SC 2154 Albuterol See Dose RTQID 10/17 1999 AC Insts (1) IN Fluticasone/ See Dose RTBID 10/17 1999 AC Salmeterol Insts (2) IN Dextrose/Sodium 1,000 ML ASDIRECTED 10/16 1800 AC 10/17 Chloride IV 0626 Diazepam 5 MG TID PRN 10/16 1800 AC 10/17 PO 0227 Hydromorphone HCl 1 MG Q1H PRN 10/16 1800 AC 10/17 IV 0657 Ondansetron HCl 4 MG Q6H PRN 10/16 1800 AC IV Dose Instructions: (1)Albuterol: 1 - 2 PUFFS (2)Fluticasone/Salmeterol: 1 CLICK Allergies Coded Allergies: NKA (10/16/16) Reconcile Medications Scheduled Medications Albuterol Sulfate (Proair Hfa) AER 2 PUFF IN QID (Reported) Aspirin (Aspirin Adult Low Strength 81 MG) 81 MG CHW 81 MG PO DAILY (Reported ) Clopidogrel Bisulfate (Plavix 75 MG) 75 MG TAB 75 MG PO DAILY (Reported) Diazepam (Diazepam 2 MG) 2 MG TAB 2 MG PO BID (Reported) Fluticasone-Salmeterol (Advair Diskus 250/50) AER 1 PUFF INH BID (Reported) Levodopa W/Carbidopa (Carbidopa/Levodopa 10/100 MG) 1 TAB TAB 1 TAB PO TID ( Reported) Lisinopril (Zestril 2.5 MG) 2.5 MG TAB 2.5 MG PO DAILY (Reported) Metoprolol Tartrate (Lopressor 25 MG) 25 MG TAB 25 MG PO BID (Reported) Sertraline HCl 25 MG TAB 25 MG PO DAILY (Reported) Physical Exam Vital Signs / I&Os Vital Signs Date Time Temp Pulse Resp B/P Pulse O2 O2 Flow FiO2 Ox Delivery Rate 10/17 0650 98.4 73 18 103/54 92 Room Air 10/17 0224 98.2 85 16 126/75 96 Room Air 10/16 2250 98.4 93 15 112/63 95 Room Air 10/16 1850 Room Air 10/16 1806 98.6 103 16 123/81 96 Room Air I&O 10/17 0000 / 1600 10/16 0800 Intake Total Output Total 220 Balance -220 General Appearance Alert, Cooperative, No acute distress Lungs Clear to auscultation, Normal air movement Cardiovascular Regular rate and rhythm, Normal S1 and S2, No murmurs, gallops, rubs Abdomen Normal bowel sounds, Soft, No tenderness Extremities No cyanosis, No clubbing, No edema Neurological Cranial nerves intact, No lateralizing signs Psych/Mental Status Mood normal, Confused LAB Results Laboratory Tests 10/17 10/16 10/16 10/16 0540 1551 1331 1331 Chemistry Plasma Sodium (136 - 145 mmol/L) 141 Plasma Potassium (3.5 - 5.1 mmol/L) 3.9 Plasma Chloride (98 - 107 mmol/L) 104 CO2 (Enzymatic) (21 - 32 mmol/L) 29 BUN (7 - 18 mg/dL) 14 Creatinine (0.6 - 1.3 mg/dL) 1.1 Est GFR ( Amer) (mL/min) >60 Est GFR (Non-Af Amer) (mL/min) >60 Glucose (70 - 110 mg/dL) 110 Plasma Calcium (8.5 - 10.1 mg/dL) 8.3 B-Natriuretic Peptide (5 - 100 pg/ml) 32 Procalcitonin (0 - 0.5 ng/mL) <0.5 Hematology WBC (4.5 - 11.5 K/uL) 8.9 RBC (4.50 - 5.90 M/uL) 4.26 Hgb (13.5 - 17.5 gm/dL) 14.0 Hct (41.0 - 53.0 %) 42.2 MCV (80 - 100 fL) 99 MCH (26 - 34 pg) 33 RDW (11.6 - 14.8 %) 13.5 Neut % (Auto) (50 - 75 %) 56.1 Lymph % (Auto) (25 - 40 %) 32.0 [place] % (Auto) (3 - 14 %) 9.0 Eos % (Auto) (0 - 4 %) 2.3 Baso % (Auto) (0 - 2 %) 0.6 Plt Count, EDTA (150 - 400 K/uL) 149 PUBS MCHC (31 - 37 g/dL) 33 Toxicology Urine Opiates Screen (NEGATIVE) NEGATIVE Urine Methadone Screen (NEGATIVE) NEGATIVE Ur Barbiturates Screen (NEGATIVE) NEGATIVE U Amphetamin/Meth Scrn (NEGATIVE) NEGATIVE MDMA (Ecstasy) Screen (NEGATIVE) NEGATIVE U Benzodiazepines Scrn (NEGATIVE) POSITIVE Urine Cocaine Screen (NEGATIVE) NEGATIVE U Cannabinoids Screen (NEGATIVE) POSITIVE Urines Urine Color YELLOW Urine Appearance CLEAR Urine pH (5.0 - 8.0) 6.0 Ur Specific [place] (1.010 - 1.030) 1.010 Urine Protein (NEGATIVE) NEGATIVE Urine Ketones (NEGATIVE) 1+ Urine Blood (NEGATIVE) NEGATIVE Urine Nitrite (NEGATIVE) NEGATIVE Ur Bilirubin Confirm (NEGATIVE) NEGATIVE Urine Urobilinogen (0.2 - 1.0 EU/dL) 0.2 Ur Leukocyte Esterase (NEGATIVE) NEGATIVE Urine RBC (0 - 1 rbc/hpf) 0-1 Urine WBC (0 - 1 wbc/hpf) 0-1 Ur Epithelial Cells (0 - 5 EPI/hpf) RARE Urine Bacteria (NONE SEEN) NONE SEEN Urine Glucose (NEGATIVE) NEGATIVE Urine Comment CULT NOT INDICATED 10/16 10/16 1331 1331 Chemistry Plasma Sodium (136 - 145 mmol/L) 137 Plasma Potassium (3.5 - 5.1 mmol/L) 3.9 Plasma Chloride (98 - 107 mmol/L) 96 CO2 (Enzymatic) (21 - 32 mmol/L) 21 BUN (7 - 18 mg/dL) 24 Creatinine (0.6 - 1.3 mg/dL) 1.6 Est GFR ( Amer) (mL/min) 55.99 Est GFR (Non-Af Amer) (mL/min) 46.19 Glucose (70 - 110 mg/dL) 121 Plasma Calcium (8.5 - 10.1 mg/dL) 9.8 Plasma Magnesium (1.8 - 2.4 mg/dL) 2.1 Total Bilirubin (0.0 - 1.0 mg/dL) 0.8 AST (15 - 37 U/L) 19 ALT (12 - 78 U/L) 21 Alkaline Phosphatase (46 - 116 U/L) 105 Creatine Kinase (24 - 260 U/L) 104 Troponin (0.00 - 1.5 ng/mL) <0.05 C-Reactive Protein (0.0 - 0.9 mg/dL) 0.2 Total Protein (6.4 - 8.2 g/dL) 8.2 Albumin (3.3 - 5.0 g/dL) 4.1 Amylase (25 - 115 U/L) 20 TSH 3rd Generation (0.30 - 3.74 uIU/mL) 1.941 Coagulation D-Dimer, Quantitative (0.27 - 0.52 ug/mLFEU) 0.30 Hematology WBC (4.5 - 11.5 K/uL) 13.1 RBC (4.50 - 5.90 M/uL) 5.21 Hgb (13.5 - 17.5 gm/dL) 17.0 Hct (41.0 - 53.0 %) 51.1 MCV (80 - 100 fL) 98 MCH (26 - 34 pg) 33 RDW (11.6 - 14.8 %) 13.4 Neut % (Auto) (50 - 75 %) 73.9 Lymph % (Auto) (25 - 40 %) 17.0 [place] % (Auto) (3 - 14 %) 8.5 Eos % (Auto) (0 - 4 %) 0.3 Baso % (Auto) (0 - 2 %) 0.3 Plt Count, EDTA (150 - 400 K/uL) 203 PUBS MCHC (31 - 37 g/dL) 33 Toxicology Plasma/Serum Ethyl Alc (3 - 10 mg/dL) < 3 Assessment and Plan Problem List 1. Epigastric pain Plan -Pain much improved. -No odynophagia -Continue PPI administration -Advance diet as tolerated -Possible discharge in a.m. 2. Dehydration Plan -Resolved -BUN and creatinine within normal limits -Monitor 3. COPD (chronic obstructive pulmonary disease) Plan -Not problematic at this time. -Continue Advair Diskus -Continue albuterol nebs every 3 hours when necessary -O2 sats good on room air -Ambulate this p.m. assess O2 sats with ambulation 4. CAD (coronary artery disease) Plan -Patient with history of coronary artery disease/chronic stent placement -Continue aspirin/Plavix -Continue outpatient medical regimen -Asymptomatic at this time. 5. HTN (hypertension) Plan -Patient with history of hypertension. -Blood pressure well controlled. -Continue present medical regimen -Low-salt diet 6. GERD (gastroesophageal reflux disease) Plan -Patient with history of gastroesophageal reflux -CT scan shows esophageal thickening -Protonix 40 mg by mouth twice a day -Monitor -Schedule outpatient upper endoscopy if symptoms improved on current therapy Current status: Fair, improved Anticipated discharge date: Anticipated discharge in a.m. Anticipated discharge placement: Home Patient care time: Time in chart review, patient interview, physical exam, CPOE, and care documentation: 25 mins Visit to patient today: 1 Complexity of care: Moderate DVT prophylaxis: Heparin E&M Codes Rounding: Obsv-Comp/Moderate/23140
[2016-10-17] MEDS ORDERED: LOPRESSOR25 MG PO (07:40)
[2016-10-17] MEDS ORDERED: ZESTRIL2.5 MG PO (07:40)
[2016-10-17] MEDS ORDERED: PLAVIX75 MG PO (07:40)
[2016-10-17] MEDS ORDERED: SERTRALINE HCL25 MG PO (07:40)
--- NOTE | 2016-10-17 09:17 | NUR ---
PATIENT RESTING IN BED AND SITTING UP IN BED FOR BREAKFAST. PATIENT DID NOT WANT TO EAT THIS AM. PATIENT A AND O X 2. PATIENT IS DISORIENTED AND NOT ABLE TO GIVE A GOOD HISTORY. STATES HE WAS LIVING WITH HIS DAUGHTER AND WILL NOT BE GOING BACK TO LIVE WITH HER BECAUSE HE IS TOO MUCH WORK FOR HER AND SHE HAS 2 BABIES AT HOME TO TAKE CARE OF. PATIENT APPEARS DEPRESSED THIS AM. PRN DIAZEPAM AND SCHEDULED SERTRALINE GIVEN. PATIENT UNABLE TO GIVE ACCURATE DOSES ON MEDICATIONS THAT HE TAKES FROM HOME BUT DOES KNOW THE NAMES OF MEDICATIONS. STATES ABDOMEN IS SORE IN THE MIDDLE. DILAUDID GIVEN. SEE SHIFT ASSESSMENT FOR FURTHER DETAILS.
[2016-10-17 11:02] VITALS: BP 138/67
--- NOTE | 2016-10-17 12:02 | NUR ---
THIS RN ATTEMPTED TO CALL DTR AT HOME AND 'SHOP' (WORK) NUMBER. NO ANSWER, VOICEMAIL ONLY AT THIS TIME.
[2016-10-17 14:37] VITALS: BP 103/56
--- NOTE | 2016-10-17 16:05 | NUR ---
PT IS RESTING IN BED WATCHING TV, DENIES PAIN BAD ENOUGH FOR MEDS. PT IS ABLE TO ANSWER QUESTIONS IF GIVEN ENOUGH TIME TO RESPOND. TREMORS PRESENT IN HANDS AND FOREARMS. ANXIETY DECREASED SINCE DIAZAPAM DOSE 2 HOURS AGO. UNKNOWN LAST BM AND PT DRANK 1 PRUNE JUICE. BED ALARMS IN PLACE. PT IS TO AMBULATE TONIGHT BUT PT STATES CANNOT WALK VERY WELL. WILL ASSESS.
--- NOTE | 2016-10-17 16:17 | NUR ---
PT AMBULATED TO RN STATION AND BACK TO ROOM, WEAK WITH PARKINSON LIKE TREMORS AND SHUFFLE. PT WAS DETERMINED TO WALK BUT NEEDED TO FOCUS ON EACH STEP. WCTM.
[2016-10-17 18:30] VITALS: BP 99/52
--- NOTE | 2016-10-17 22:01 | NUR ---
PT STATES DAUGHTER WAS SUPPOSED TO ADMIN MEDS BUT DIDN'T FOLLOW THROUGH. PT STATES FEELING MUCH BETTER AND TREMORS HAVE DECREASED SINCE BEING HERE. AMBULATES AT HOME "SLOW STEPS AROUND THE SMALL HOUSE UNTIL I GET TO WHERE I AM GOING". " AT TIMES THE WALKER GETS IN THE WAY".
[2016-10-17 22:56] VITALS: BP 100/52
[2016-10-18] VITALS (7 sets, daily range): BP systolic 106–144; BP diastolic 54–78
--- NOTE | 2016-10-18 02:52 | NUR ---
Pt has been resting in bed throughout shift. Denies pain or discomfort. Sl. tremors noted arms bilat. Pt. is oriented to self and place. Pleasant and cooperative with all care. IV fluids infusing without issues. Pt. uses urinal independenly while in bed. WCTM.
--- NOTE | 2016-10-18 16:00 | Progress Note ---
Subjective General Note Date: October 18, 2016 Admission Date: October 16, 2016 Hospital Day: 3 PCP: None Status: Observation, ACU Advanced Directive: NO CODE Room: 206 Admission History: The patient is a 66-year-old white male with a significant past medical history of COPD, coronary artery disease, hypertension, gastroesophageal reflux, Parkinson's disease, who presented to [facility] emergency department secondary to complaints of epigastric pain. [facility] ER evaluation was consistent with epigastric pain rule out GI origin and dehydration. Secondary to the above, the patient was admitted by Víctor Gonzáles M.D. for further evaluation and treatment. For other history present illness, past medical history, family history, social history, review of systems, and admission physical examination please see the patient's history and physical examination and ER visit note in the patient's medical record. Subjective: The patient states status improved today. No significant abdominal pain at this time. No recent nausea or vomiting. Patient requests: None Medications and Allergies Medications Current Medications Sig/Jerome Start time Last Medication Dose Route Stop Time Status Admin Famotidine/Sodium 20 MG Q12HR 10/17 2099 AC 10/18 Chloride IV 0847 Pantoprazole Sodium 40 MG PPIBID 10/17 1500 AC 10/18 Sesquihydrate PO 1519 Albuterol Sulfate 2.5 MG RTQ3H PRN 10/17 1445 AC IN Aspirin 325 MG DAILY 10/17 899 AC 10/18 PO 0847 Clopidogrel Bisulfate 75 MG DAILY 10/17 899 AC 10/18 PO 0847 Lisinopril 20 MG DAILY 10/17 09 AC 10/18 PO 0847 Metoprolol Succinate 50 MG DAILY 10/17 09 AC 10/18 PO 0847 Sertraline HCl 50 MG DAILY 10/17 09 AC 10/18 PO 0847 Carbidopa/Levodopa 1 TAB TID 10/16 2200 AC 10/18 PO 1519 Heparin Sodium 5,000 UNITS BID 10/16 2100 AC 10/18 (Porcine) SC 0847 Fluticasone/ See Dose RTBID 10/16 2000 AC 10/18 Salmeterol Insts (1) IN 0725 Dextrose/Sodium 1,000 ML ASDIRECTED 10/16 1800 AC 10/18 Chloride IV 1158 Diazepam 5 MG TID PRN 10/16 1800 AC 10/18 PO 1521 Hydromorphone HCl 1 MG Q1H PRN 10/16 1800 AC 10/17 IV 0852 Ondansetron HCl 4 MG Q6H PRN 10/16 1800 AC 10/17 IV 0852 Dose Instructions: (1)Fluticasone/Salmeterol: 1 CLICK Allergies Coded Allergies: NKA (10/16/16) Reconcile Medications Scheduled Medications Albuterol Sulfate (Proair Hfa) AER 2 PUFF IN QID (Reported) Aspirin (Aspirin Adult Low Strength 81 MG) 81 MG CHW 81 MG PO DAILY (Reported ) Clopidogrel Bisulfate (Plavix 75 MG) 75 MG TAB 75 MG PO DAILY (Reported) Diazepam (Diazepam 2 MG) 2 MG TAB 2 MG PO BID (Reported) Fluticasone-Salmeterol (Advair Diskus 250/50) AER 1 PUFF INH BID (Reported) Levodopa W/Carbidopa (Carbidopa/Levodopa 10/100 MG) 1 TAB TAB 1 TAB PO TID ( Reported) Lisinopril (Zestril 2.5 MG) 2.5 MG TAB 2.5 MG PO DAILY (Reported) Metoprolol Tartrate (Lopressor 25 MG) 25 MG TAB 25 MG PO BID (Reported) Sertraline HCl 25 MG TAB 25 MG PO DAILY (Reported) Physical Exam Vital Signs / I&Os Vital Signs Date Time Temp Pulse Resp B/P Pulse O2 O2 Flow FiO2 Ox Delivery Rate 10/18 1420 99.1 67 18 127/68 96 Room Air 10/18 1132 98.8 65 18 134/55 96 Room Air 10/18 0652 99.1 74 18 129/78 96 Room Air 10/18 0241 97.9 57 14 106/69 95 Room Air 10/17 2302 98.1 10/17 2256 59 15 100/52 97 10/17 1830 99.0 73 16 99/52 95 Room Air 92 I&O 10/18 0000 10/17 1600 10/17 0800 Intake Total 1402 1500 1430 Output Total 900 900 400 Balance 877 098 8813 General Appearance Alert, Oriented X3, Cooperative, No acute distress Lungs Clear to auscultation, Normal air movement Cardiovascular Regular rate and rhythm, Normal S1 and S2 Abdomen Normal bowel sounds, Soft, No tenderness Extremities No cyanosis, No clubbing Neurological Cranial nerves intact, No lateralizing signs Psych/Mental Status Confused, mood depressed LAB Results Laboratory Tests 10/18 0535 Chemistry Plasma Sodium (136 - 145 mmol/L) 145 Plasma Potassium (3.5 - 5.1 mmol/L) 4.1 Plasma Chloride (98 - 107 mmol/L) 109 CO2 (Enzymatic) (21 - 32 mmol/L) 31 BUN (7 - 18 mg/dL) 8 Creatinine (0.6 - 1.3 mg/dL) 1.2 Est GFR ( Amer) (mL/min) >60 Est GFR (Non-Af Amer) (mL/min) >60 Glucose (70 - 110 mg/dL) 96 Plasma Calcium (8.5 - 10.1 mg/dL) 8.2 Assessment and Plan Problem List 1. Epigastric pain Plan -Much improved -No recent abdominal pain -Continue Protonix 2. Dehydration Plan -Resolved 3. COPD (chronic obstructive pulmonary disease) Plan -Stable -Not problematic at this time -Continue present therapy -O2 sats good on room air 4. CAD (coronary artery disease) Plan -Stable -No recent chest pain -Continue present therapy 5. GERD (gastroesophageal reflux disease) Plan -Stable -No recent abdominal pain -No reflux symptoms -Consider endoscopy on an outpatient basis secondary to esophageal edema/ thickening Current status: Fair, improved Anticipated discharge date: Anticipated discharge in a.m. Anticipated discharge placement: Adult home/assisted living Patient care time: Time in chart review, patient interview, physical exam, CPOE, and care documentation: 25 mins Visit to patient today: 2 Complexity of care: Moderate DVT prophylaxis: Heparin E&M Codes Rounding: Inpt-Moderate/85416
--- NOTE | 2016-10-18 19:43 | NUR ---
JUST RECEIEVED PATIENT FROM MORNING SHIFT. PT IS IN NO DISTRESS. LUNG SOUNDS CLEAR. BOWEL TONES PRESENT ALL QUARDRANTS. HEART TONES WNL. PT CURRENTLY RESTING IN BED NOW.
--- NOTE | 2016-10-18 23:21 | NUR ---
TOLD CONTENT STRATEGY LEAD ABOUT PTS FAMOTIDINE AND TOLD HIM HOW IT SHOUDL BE D/C. PER MD ORDERS.
--- NOTE | 2016-10-18 23:35 | NUR ---
Pt alert on assessment. Oriented to self only. Pleasantly confused. Bed alarm on. Voided per urinal. IV infusing. Pt had received Valium per prev RN. He's hoping to sleep now. Denies pain. No complaints. VSS.
[2016-10-19 03:26] VITALS: BP 118/54
--- NOTE | 2016-10-19 05:10 | NUR ---
Pt has had uneventful night. Voided per urinal b/w sleeping. VSS. IV infusing. Bed alarm on, but no attempts to get OOB. Is only oriented to self, but pleasantly cooperative.
[2016-10-19 06:12] VITALS: BP 116/70
--- NOTE | 2016-10-19 06:35 | Progress Note ---
Subjective General Note Date: October 19, 2016 Admission Date: October 16, 2016 Hospital Day: 4 PCP: None Status: Observation, ACU Advanced Directive: NO CODE Room: 206 Admission History: The patient is a 66-year-old white male with a significant past medical history of COPD, coronary artery disease, hypertension, gastroesophageal reflux, Parkinson's disease, who presented to [facility] emergency department secondary to complaints of epigastric pain. [facility] ER evaluation was consistent with epigastric pain rule out GI origin and dehydration. Secondary to the above, the patient was admitted by Víctor Gonzáles M.D. for further evaluation and treatment. For other history present illness, past medical history, family history, social history, review of systems, and admission physical examination please see the patient's history and physical examination and ER visit note in the patient's medical record. Subjective: The patient states he is doing well at this time. No further abdominal pain. No nausea or vomiting. Patient requests: None Medications and Allergies Medications Current Medications Sig/Jerome Start time Last Medication Dose Route Stop Time Status Admin Pantoprazole Sodium 40 MG PPIBID 10/17 1500 AC 10/19 Sesquihydrate PO 06 Albuterol Sulfate 2.5 MG RTQ3H PRN 10/17 1445 AC IN Aspirin 325 MG DAILY 10/17 899 AC 10/18 PO 0847 Clopidogrel Bisulfate 75 MG DAILY 10/17 09 AC 10/18 PO 0847 Lisinopril 20 MG DAILY 10/17 09 AC 10/18 PO 0847 Metoprolol Succinate 50 MG DAILY 10/17 09 AC 10/18 PO 0847 Sertraline HCl 50 MG DAILY 10/17 09 AC 10/18 PO 0847 Carbidopa/Levodopa 1 TAB TID 10/16 2200 AC 10/19 PO 0613 Heparin Sodium 5,000 UNITS BID 10/16 2100 AC 10/18 (Porcine) SC 2051 Fluticasone/ See Dose RTBID 10/17 1999 AC 10/18 Salmeterol Insts (1) IN 1925 Dextrose/Sodium 1,000 ML ASDIRECTED 10/16 1799 AC 10/18 Chloride IV 220 Diazepam 5 MG TID PRN 10/16 1800 AC 10/18 PO 2213 Hydromorphone HCl 1 MG Q1H PRN 10/16 1800 AC 10/17 IV 0852 Ondansetron HCl 4 MG Q6H PRN 10/16 1800 AC 10/17 IV 0852 Dose Instructions: (1)Fluticasone/Salmeterol: 1 CLICK Allergies Coded Allergies: NKA (10/16/16) Reconcile Medications Scheduled Medications Albuterol Sulfate (Proair Hfa) AER 2 PUFF IN QID (Reported) Aspirin (Aspirin Adult Low Strength 81 MG) 81 MG CHW 81 MG PO DAILY (Reported ) Clopidogrel Bisulfate (Plavix 75 MG) 75 MG TAB 75 MG PO DAILY (Reported) Diazepam (Diazepam 2 MG) 2 MG TAB 2 MG PO BID (Reported) Fluticasone-Salmeterol (Advair Diskus 250/50) AER 1 PUFF INH BID (Reported) Levodopa W/Carbidopa (Carbidopa/Levodopa 10/100 MG) 1 TAB TAB 1 TAB PO TID ( Reported) Lisinopril (Zestril 2.5 MG) 2.5 MG TAB 2.5 MG PO DAILY (Reported) Metoprolol Tartrate (Lopressor 25 MG) 25 MG TAB 25 MG PO BID (Reported) Sertraline HCl 25 MG TAB 25 MG PO DAILY (Reported) Physical Exam Vital Signs / I&Os Vital Signs Date Time Temp Pulse Resp B/P Pulse O2 O2 Flow FiO2 Ox Delivery Rate 10/19 0612 98.8 62 16 116/70 98 Room Air 0.0 10/19 0326 98.2 69 18 118/54 95 Room Air 10/18 2234 98.2 68 18 110/63 96 Room Air 10/18 1820 98.8 71 18 107/54 97 Room Air 10/18 1420 99.1 67 18 127/68 96 Room Air 10/18 1132 98.8 65 18 134/55 96 Room Air 10/18 0652 99.1 74 18 129/78 96 Room Air I&O 10/19 0000 07/03 1600 07 0800 Intake Total 507 994 6438 Output Total 950 325 950 Balance -368 678 6096 General Appearance Alert, Oriented X3, Cooperative, No acute distress Lungs Clear to auscultation, Normal air movement Cardiovascular Regular rate and rhythm, Normal S1 and S2, No murmurs, gallops, rubs Abdomen Normal bowel sounds, Soft, No tenderness, No guarding Extremities No cyanosis, No clubbing, No edema Neurological Cranial nerves intact, No lateralizing signs Psych/Mental Status Mental status normal, Mood normal Assessment and Plan Problem List 1. GERD (gastroesophageal reflux disease) Plan -Stable -No GERD complaints by patient -Continue Protonix 40 mg by mouth twice a day 2. Epigastric pain Plan -Resolved 3. COPD (chronic obstructive pulmonary disease) Plan -Stable -No shortness of breath -O2 requirements -Continue present therapy 4. CAD (coronary artery disease) Plan -No complaints of chest pain -Status stable -No further evaluation 5. HTN (hypertension) Plan -Blood pressure slightly labile, adequate control. -Low-salt diet -Continue present medical regimen 6. Parkinson disease Plan -History of Parkinson's disease -Continue Sinemet -Not problematic at this time 7. Dehydration Plan -Resolved Current status: Good, improved Anticipated discharge date: Today if appropriate placement obtained by discharge planning Anticipated discharge placement: Adult home/assisted living Patient care time: Time in chart review, patient interview, physical exam, CPOE, and care documentation: 25 mins Visit to patient today: 1 Complexity of care: Moderate DVT prophylaxis: Heparin Patient ready for discharge at this time. Patient's family refused to take the patient back into their home. Attempting to find placement for patient. No medical indication for ongoing hospitalization. E&M Codes Rounding: Inpt-Moderate/56997
--- NOTE | 2016-10-19 06:35 | Progress Note ---
Subjective General Note Date: October 19, 2016 Admission Date: October 16, 2016 Hospital Day: 4 PCP: None Status: Observation, ACU Advanced Directive: NO CODE Room: 206 Admission History: The patient is a 66-year-old white male with a significant past medical history of COPD, coronary artery disease, hypertension, gastroesophageal reflux, Parkinson's disease, who presented to [facility] emergency department secondary to complaints of epigastric pain. [facility] ER evaluation was consistent with epigastric pain rule out GI origin and dehydration. Secondary to the above, the patient was admitted by Víctor Gonzáles M.D. for further evaluation and treatment. For other history present illness, past medical history, family history, social history, review of systems, and admission physical examination please see the patient's history and physical examination and ER visit note in the patient's medical record. Subjective: The patient states he is doing well at this time. No further abdominal pain. No nausea or vomiting. Patient requests: None Medications and Allergies Medications Current Medications Sig/Jerome Start time Last Medication Dose Route Stop Time Status Admin Pantoprazole Sodium 40 MG PPIBID 10/17 1500 AC 10/19 Sesquihydrate PO 06 Albuterol Sulfate 2.5 MG RTQ3H PRN 10/17 1445 AC IN Aspirin 325 MG DAILY 10/17 899 AC 10/18 PO 0847 Clopidogrel Bisulfate 75 MG DAILY 10/17 09 AC 10/18 PO 0847 Lisinopril 20 MG DAILY 10/17 09 AC 10/18 PO 0847 Metoprolol Succinate 50 MG DAILY 10/17 09 AC 10/18 PO 0847 Sertraline HCl 50 MG DAILY 10/17 09 AC 10/18 PO 0847 Carbidopa/Levodopa 1 TAB TID 10/16 2200 AC 10/19 PO 0613 Heparin Sodium 5,000 UNITS BID 10/16 2100 AC 10/18 (Porcine) SC 2051 Fluticasone/ See Dose RTBID 10/17 1999 AC 10/18 Salmeterol Insts (1) IN 1925 Dextrose/Sodium 1,000 ML ASDIRECTED 10/16 1799 AC 10/18 Chloride IV 220 Diazepam 5 MG TID PRN 10/16 1800 AC 10/18 PO 2213 Hydromorphone HCl 1 MG Q1H PRN 10/16 1800 AC 10/17 IV 0852 Ondansetron HCl 4 MG Q6H PRN 10/16 1800 AC 10/17 IV 0852 Dose Instructions: (1)Fluticasone/Salmeterol: 1 CLICK Allergies Coded Allergies: NKA (10/16/16) Reconcile Medications Scheduled Medications Albuterol Sulfate (Proair Hfa) AER 2 PUFF IN QID (Reported) Aspirin (Aspirin Adult Low Strength 81 MG) 81 MG CHW 81 MG PO DAILY (Reported ) Clopidogrel Bisulfate (Plavix 75 MG) 75 MG TAB 75 MG PO DAILY (Reported) Diazepam (Diazepam 2 MG) 2 MG TAB 2 MG PO BID (Reported) Fluticasone-Salmeterol (Advair Diskus 250/50) AER 1 PUFF INH BID (Reported) Levodopa W/Carbidopa (Carbidopa/Levodopa 10/100 MG) 1 TAB TAB 1 TAB PO TID ( Reported) Lisinopril (Zestril 2.5 MG) 2.5 MG TAB 2.5 MG PO DAILY (Reported) Metoprolol Tartrate (Lopressor 25 MG) 25 MG TAB 25 MG PO BID (Reported) Sertraline HCl 25 MG TAB 25 MG PO DAILY (Reported) Physical Exam Vital Signs / I&Os Vital Signs Date Time Temp Pulse Resp B/P Pulse O2 O2 Flow FiO2 Ox Delivery Rate 10/19 0612 98.8 62 16 116/70 98 Room Air 0.0 10/19 0326 98.2 69 18 118/54 95 Room Air 10/18 2234 98.2 68 18 110/63 96 Room Air 10/18 1820 98.8 71 18 107/54 97 Room Air 10/18 1420 99.1 67 18 127/68 96 Room Air 10/18 1132 98.8 65 18 134/55 96 Room Air 10/18 0652 99.1 74 18 129/78 96 Room Air I&O 10/19 0000 07/03 1600 07 0800 Intake Total 188 845 1404 Output Total 950 325 950 Balance -313 422 7497 General Appearance Alert, Oriented X3, Cooperative, No acute distress Lungs Clear to auscultation, Normal air movement Cardiovascular Regular rate and rhythm, Normal S1 and S2, No murmurs, gallops, rubs Abdomen Normal bowel sounds, Soft, No tenderness, No guarding Extremities No cyanosis, No clubbing, No edema Neurological Cranial nerves intact, No lateralizing signs Psych/Mental Status Mental status normal, Mood normal Assessment and Plan Problem List 1. GERD (gastroesophageal reflux disease) Plan -Stable -No GERD complaints by patient -Continue Protonix 40 mg by mouth twice a day 2. Epigastric pain Plan -Resolved 3. COPD (chronic obstructive pulmonary disease) Plan -Stable -No shortness of breath -O2 requirements -Continue present therapy 4. CAD (coronary artery disease) Plan -No complaints of chest pain -Status stable -No further evaluation 5. HTN (hypertension) Plan -Blood pressure slightly labile, adequate control. -Low-salt diet -Continue present medical regimen 6. Parkinson disease Plan -History of Parkinson's disease -Continue Sinemet -Not problematic at this time 7. Dehydration Plan -Resolved Current status: Good, improved Anticipated discharge date: Today if appropriate placement obtained by discharge planning Anticipated discharge placement: Adult home/assisted living Patient care time: Time in chart review, patient interview, physical exam, CPOE, and care documentation: 25 mins Visit to patient today: 1 Complexity of care: Moderate DVT prophylaxis: Heparin Patient ready for discharge at this time. Patient's family refused to take the patient back into their home. Attempting to find placement for patient. No medical indication for ongoing hospitalization. E&M Codes Rounding: Inpt-Moderate/75425
--- NOTE | 2016-10-19 08:50 | NUR ---
RECEIVED PT UP IN THE CHAIR, AWAKE, LAERT, PLEASANTLY CONFUSED BUT COOPERATIVE. ORIENTED TO PERSON ONLY. PT IS SWINGING AND TREMORS ON BOTH ARMS OCCASIONALLY. V/S TAKEN AND RECORDED. ASSESSMENT DONE. PT DENIES CHEST PAIN AT THIS TIME. PT DECLINED HIS BREKFAST TRAY, OFFERED A NEW TRAY BUT PT REFUSED AT THIS TIME. REQUESTED COFFEE INSTEAD AND GIVEN. DUE MEDS GIVEN. NEEDS ATTENDED.
[2016-10-19 10:44] VITALS: BP 107/56
--- NOTE | 2016-10-19 11:45 | NUR ---
PT AMBULATE WITH P.T. (+) SHAFFLING NOTED. (+) SOB AFTER HE AMBULATE. THEN ASSISTED PT BACK IN BED.
[2016-10-19] MEDS ORDERED: ADVAIR DISKU1 INH (13:13)
[2016-10-19] MEDS ORDERED: PANTOPRAZOLE SO40 MG PO (13:15)
[2016-10-19 14:25] VITALS: BP 123/69
--- NOTE | 2016-10-19 15:34 | NUR ---
ASSUMED CARE FROM DAY SHIFT NURSE. PATIENT CONVERSATIVE AND COOPERATIVE. A AND O X 1-2. HX OF PARKINSON'S. IS UNSTEADY ON FEET AND NEEDS SUPERVISION WHEN UP. BED/CHAIR ALARMS ON. DENIES PAIN. LUNGS CLEAR. NO EDEMA. BRUISE NOTED TO L OUTER ARM. IS ON ANTICOAGULANTS. NO COMPLAINTS. WILL CONTINUE TO MONITOR.
[2016-10-19 18:13] VITALS: BP 149/69
[2016-10-19 23:03] VITALS: BP 139/72
[2016-10-20 03:40] VITALS: BP 128/74
[2016-10-20 06:44] VITALS: BP 141/66
--- NOTE | 2016-10-20 07:59 | NUR ---
PATIENT RESTING IN BED AND UP TO CHAIR WITH 1 PERSON ASSIST WITH IV POLE FOR BREAKFAST. PATIENT UNSTEADY DUE TO PARKINSON'S. NO COMPLAINTS AT THIS TIME. DENIES PAIN. SEE SHIFT ASSESSMENT FOR FURTHER DETAILS.
--- NOTE | 2016-10-20 08:35 | Progress Note ---
Subjective General This is a 66-year-old white male who developed abdominal pain for last 5 days along with nausea. He also vomited twice. Normal bowel movements. No fever but had some chills. Patient also mildly confused. Patient was dropped off by her family to the emergency room. Doing fine no chest pain or dyspnea, no nausea or vomiting, no fever or chills tolerating food fine,slept well Physical Exam Vital Signs / I&Os Vital Signs Date Time Temp Pulse Resp B/P Pulse O2 O2 Flow FiO2 Ox Delivery Rate 10/20 0806 95 07/05 0644 97.3 57 16 141/66 95 Room Air 0.0 07/05 0340 98.6 56 18 128/74 97 Room Air 07/ 2303 98.2 59 18 139/72 98 Room Air 07/ 2100 Room Air 07/ 1813 98.8 63 18 149/69 97 Room Air 07/ 1425 98.6 60 20 123/69 96 Room Air 0.0 07/04 1044 98.8 61 18 107/56 98 Room Air 0.0 10/19 0855 Room Air 0.0 I&O 07/05 0000 07/04 1600 07/04 0800 Intake Total 773 725 9986 Output Total 1050 1000 Balance -660 843 3814 Lungs Clear to auscultation Cardiovascular Regular rate and rhythm, Normal S1 and S2, No murmurs, gallops, rubs Abdomen Normal bowel sounds, Soft, No tenderness Extremities No edema Assessment and Plan Problem List 1. Epigastric pain Plan resolved waiting for SNIF 2. COPD (chronic obstructive pulmonary disease) Plan controlled continue current meds 3. CAD (coronary artery disease) Plan stable continue current meds 4. HTN (hypertension) Plan controlled continue current meds 5. Parkinson disease
--- NOTE | 2016-10-20 08:35 | Progress Note ---
Subjective General This is a 66-year-old white male who developed abdominal pain for last 5 days along with nausea. He also vomited twice. Normal bowel movements. No fever but had some chills. Patient also mildly confused. Patient was dropped off by her family to the emergency room. Doing fine no chest pain or dyspnea, no nausea or vomiting, no fever or chills tolerating food fine,slept well Physical Exam Vital Signs / I&Os Vital Signs Date Time Temp Pulse Resp B/P Pulse O2 O2 Flow FiO2 Ox Delivery Rate 10/20 0806 95 07/05 0644 97.3 57 16 141/66 95 Room Air 0.0 07/05 0340 98.6 56 18 128/74 97 Room Air 07/ 2303 98.2 59 18 139/72 98 Room Air 07/ 2100 Room Air 07/ 1813 98.8 63 18 149/69 97 Room Air 07/ 1425 98.6 60 20 123/69 96 Room Air 0.0 07/04 1044 98.8 61 18 107/56 98 Room Air 0.0 10/19 0855 Room Air 0.0 I&O 07/05 0000 07/04 1600 07/04 0800 Intake Total 832 713 1564 Output Total 1050 1000 Balance -583 526 9046 Lungs Clear to auscultation Cardiovascular Regular rate and rhythm, Normal S1 and S2, No murmurs, gallops, rubs Abdomen Normal bowel sounds, Soft, No tenderness Extremities No edema Assessment and Plan Problem List 1. Epigastric pain Plan resolved waiting for SNIF 2. COPD (chronic obstructive pulmonary disease) Plan controlled continue current meds 3. CAD (coronary artery disease) Plan stable continue current meds 4. HTN (hypertension) Plan controlled continue current meds 5. Parkinson disease
[2016-10-20 10:05] VITALS: BP 111/65
--- NOTE | 2016-10-20 11:54 | NUR ---
not seen d/t high census. Will ck bk 7-6
--- NOTE | 2016-10-20 14:23 | NUR ---
NUTRITION ASSESSMENT: S: Pt admitted with epigastric pain and hx/o Parkinson's. Pt PMH includes: COPD, CAD, HTN, GERD, parkinsons, see H&P. Spoke with pt this afternoon, reports poor appetite, nothing sounds good right now, only likes drinking boost during the day. O: Diet Rx: Cardiac Mech Soft Thin NKFA Wts: 81.6 Kg Ht: 75" IBW: 75-82 kg BMI: 22.6 Est Kcals: ~3224-3999 kcals per day Est Pro: ~80-95 g per day Est Fluids: ~2.4 L per day Med incl: aspirin, carbidopa, lisinopril, sertraline, protonix, plavix, see eMar for complete list/details. Labs: REv'd Skin: waffle cushion in place Ulysses Score 19; wnl A: Pt reports poor appetite, just no interest or desire to eat much at this time. Per nsg pt appears down/depressed. Pts weight wnl, now weight loss desired. Cardiac diet in place 2/2 hx/ CAD, see PMH. Rec consider liberalize diet to general mech soft to help with chewing ease 2/2 missing teeth. Rec add mighty shakes q meal and continue BOOST between meals. P: Rec General Mech soft diet with mighty shakes q meal BOOST bid between meals.
[2016-10-20 14:30] VITALS: BP 108/64
--- NOTE | 2016-10-20 18:05 | NUR ---
PATIENT AMBULATED IN HALLS TODAY WITH 2 PERSON ASSIST ON BOTH SIDES FOR SAFETY HOLDING ONTO IV POLE. PATIENT HAS SHUFFLING GAIT D/T PARKINSON'S. PATIENT AMBULATED IN ONE SPICER AND BACK. PATIENT WAS TOO TIRED DURING REST OF SHIFT TO ATTEMPT AGAIN.
[2016-10-20 18:29] VITALS: BP 108/66
[2016-10-20 22:56] VITALS: BP 110/64
--- NOTE | 2016-10-20 23:07 | NUR ---
PT IS PLEASANT WITH NO COMPLAINTS EXCEPT ANXIETY AND DIFFICULTY SLEEPING. AMBULATED EARLY IN SHIFT WITH GATO AND PROTOZOOLOGY TEACHER. DID NOT WANT TO AMBULATE AGAIN DURING MY SHIFT. NO PAIN. WCTM.
[2016-10-21 04:40] VITALS: BP 120/68
[2016-10-21 06:55] VITALS: BP 134/78
--- NOTE | 2016-10-21 08:05 | Progress Note ---
Subjective General This is a 66-year-old white male who developed abdominal pain for last 5 days along with nausea. He also vomited twice. Normal bowel movements. No fever but had some chills. Patient also mildly confused. Patient was dropped off by her family to the emergency room. Doing fine, no fever or chills, no cp or dyspnea, no nause or vomiting, eating and sleeping fine Physical Exam Vital Signs / I&Os Vital Signs Date Time Temp Pulse Resp B/P Pulse O2 O2 Flow FiO2 Ox Delivery Rate 10/21 0655 98.1 52 18 134/78 95 Room Air 07/06 0440 98.1 60 16 120/68 99 Room Air 07/06 0046 0.0 07/05 2256 98.2 56 16 110/64 98 Room Air 07/05 1829 66 16 108/66 97 07/05 1430 98.2 56 18 108/64 96 Room Air 07/05 1005 98.2 55 20 111/65 96 Room Air 0.0 07/05 0806 95 I&O 07/ 0000 07/05 1600 07/05 0800 Intake Total 360 440 50 Output Total 320 925 875 Balance 40 -485 -825 Lungs Clear to auscultation Cardiovascular Regular rate and rhythm, Normal S1 and S2, No murmurs, gallops, rubs Abdomen Normal bowel sounds, Soft, No tenderness Extremities No edema Assessment and Plan Problem List 1. COPD (chronic obstructive pulmonary disease) Plan controlled continue inhalers, waiting for SNIF placement 2. HTN (hypertension) Plan controlled continue current meds 3. CAD (coronary artery disease) Plan stable 4. GERD (gastroesophageal reflux disease)
--- NOTE | 2016-10-21 09:58 | NUR ---
pt sitting in chair upon arrival. pt agreeable to skilled PT intervention. pt completed 7 sit to stand using a FWW. pt completed step pivot transfer to the bed. pt needed a seated break at the EOB for 3 minutes. pt completed sit to supine SBA. Once supine pt completed 10 reps of the following: ankle pumps, quad sets, glute sets, HS sets, and bridges. Once completed pt c/o of fatigue and requested to remain in bed for the time being. pt instructed to get up for lunch around noon and pt agreed. pt left with tray table next to bed and call garcia within reach. pt recommended to d/c to [facility] with HHPT to continue to strengthen and increase balance.
[2016-10-21 10:13] VITALS: BP 104/64
[2016-10-21 14:47] VITALS: BP 111/62
--- NOTE | 2016-10-21 17:10 | NUR ---
NO C/O ABDOMINAL PAIN OR ANY DISCOMFORT. UP IN CHAIR FOR ALL MEALS. CALM AND COOPERTIVE. ORIENTED TO SELF AND SOMETIMES TO PLACE BUT NOT TO TIME.
[2016-10-21 18:13] VITALS: BP 114/71
--- NOTE | 2016-10-21 22:00 | NUR ---
Patient appears forgetful despite being reminded of the name of the hospital. He was reminded to call if he needed anything for the night. He confirmd that he has no pain but would like to have an anxiolytic for the night.
[2016-10-21 22:01] VITALS: BP 110/73
[2016-10-22] VITALS (8 sets, daily range): BP systolic 89–144; BP diastolic 58–100
--- NOTE | 2016-10-22 09:36 | Progress Note ---
Subjective General This is a 66-year-old white male who developed abdominal pain for last 5 days along with nausea. He also vomited twice. Normal bowel movements. No fever but had some chills. Patient also mildly confused. Patient was dropped off by her family to the emergency room. Doing fine, anxious to be discharged, no fever or chills no cp or dyspnea, no nausea or vomiting Physical Exam Vital Signs / I&Os Vital Signs Date Time Temp Pulse Resp B/P Pulse O2 O2 Flow FiO2 Ox Delivery Rate 10/22 0633 98.1 58 18 109/63 95 / 0214 98.1 61 15 119/100 97 Room Air 10/21 2234 Room Air 10/21 2201 98.4 58 18 110/73 96 / 1813 98.2 77 18 114/71 97 / 1447 98.2 60 18 111/62 97 /06 1041 Room Air / 1013 98.2 71 18 104/64 96 Room Air I&O 10/22 0000 /06 1600 10/21 0800 Intake Total 760 480 Output Total 300 600 400 Balance 460 -120 -400 Lungs Clear to auscultation Cardiovascular Regular rate and rhythm, Normal S1 and S2, No murmurs, gallops, rubs Abdomen Normal bowel sounds, Soft, No tenderness Extremities No edema Assessment and Plan Problem List 1. COPD (chronic obstructive pulmonary disease) Plan stable awaiting for SNIF placement 2. HTN (hypertension) Plan controlled continue current meds 3. CAD (coronary artery disease)
--- NOTE | 2016-10-22 10:53 | NUR ---
NUTRITION NOTE: Pts appetite appears to be improving, ~100% last 4 meals. Wts fluctuating but no signicant changes noted. Rec continue current diet/nutrition plan of care. Pt awaiting placement. RD to follow up prn/protocol.
--- NOTE | 2016-10-22 11:16 | NUR ---
pt seated in chair and agreeable to skilled PT. pt completed sit to stand x5 using a FWW. Education given on handplacement on FWW. pt completed step pivot transfer from chair to bed CGA with A to bring the FWW backwards. pt completed sit to supine SBA. pt completed [id number] of bridges, 2x5 reps of hip abduction. pt requested to return to his chair upon finishing the session. pt completed supine to sit SBA, sit to stand using a FWW SBA. pt completed step pivot transfer to the chair. pt left in chair with tray table in front and call button in reach. pt continued to be recommended to d/c to [facility] with HHPT to further strengthen and increase balance.
--- NOTE | 2016-10-22 16:02 | NUR ---
patient resting in the chair/bed confortable. he is participating in care. waiting SNF placement. denies pain. vitals normal
[2016-10-23] VITALS (7 sets, daily range): BP systolic 86–108; BP diastolic 50–67
--- NOTE | 2016-10-23 00:30 | NUR ---
Took over this patient's care. He is comfortably asleep after having his anxiolytic earlier. He remains without IV access and is awaiting placement.
--- NOTE | 2016-10-23 00:39 | NUR ---
VSS. A&OX1, SELF. ONE EPISODE OF ANXIETY, DIAZEPAM EFFECTIVE. OTHERWISE UNREMARKABLE SHIFT. AWAITING PLACEMENT FOR AF. TM.
--- NOTE | 2016-10-23 08:16 | Progress Note ---
Subjective General This is a 66-year-old white male who developed abdominal pain for last 5 days along with nausea. He also vomited twice. Normal bowel movements. No fever but had some chills. Patient also mildly confused. Patient was dropped off by her family to the emergency room. Doing fine, no cp or dyspnea, no nausea or vomiting no fever or chills Physical Exam Vital Signs / I&Os Vital Signs Date Time Temp Pulse Resp B/P Pulse O2 O2 Flow FiO2 Ox Delivery Rate 10/23 0644 98.2 69 18 102/50 98 / 0301 Room Air 0.0 10/23 0238 97.9 59 18 88/56 98 Room Air 10/22 2200 98.4 83 16 144/73 97 Room Air 10/22 1812 98.1 66 18 94/60 98 Room Air 10/22 1700 Room Air 10/22 1453 103/66 10/22 1452 98.2 64 18 95/63 96 Room Air 10/22 1026 98.8 76 18 115/65 96 Room Air 10/22 1024 Room Air I&O 10/23 0000 10/22 1600 10/22 0800 Intake Total 1000 480 240 Output Total 325 700 Balance 675 480 -460 Lungs Clear to auscultation Cardiovascular Regular rate and rhythm, Normal S1 and S2, No murmurs, gallops, rubs Abdomen Normal bowel sounds, Soft, No tenderness Extremities No edema Assessment and Plan Problem List 1. COPD (chronic obstructive pulmonary disease) Plan controlled continue inhalers, waiting for SNIF 2. HTN (hypertension) Plan controlled continue current meds 3. CAD (coronary artery disease) Plan stable continue current meds
--- NOTE | 2016-10-23 08:28 | NUR ---
RECEIVED PT UP IN THE CHAIR, AWAKE, ALERT, ORIENTED, COHERENT, COOPERATIVE. V/S TAKEN AND RECORDED. ASSESSMENT DONE. PT DENIES CHEST PAIN AT THIS TIME. COMPLAINT OF LOWER BACK PAIN. POOR APPETITE NOTED OFFERED SNACKS BUT PT REFUSED AT THIS TIME. DUE MEDS GIVEN. SEEN BY DR BAKER EARLIER. NEEDS ATTENDED.
[2016-10-24 03:03] VITALS: BP 95/50
[2016-10-24 07:26] VITALS: BP 109/64
--- NOTE | 2016-10-24 09:20 | NUR ---
PATIENT UP IN CHAIR FOR BREAKFAST, PLEASANT AND COOPERATIVE. DENIES PAIN. SEE SHIFT ASSESSMENT FOR FURTHER DETAILS.
--- NOTE | 2016-10-24 10:24 | Progress Note ---
Subjective General This is a 66-year-old white male who developed abdominal pain for last 5 days along with nausea. He also vomited twice. Normal bowel movements. No fever but had some chills. Patient also mildly confused. Patient was dropped off by her family to the emergency room. Doing fine, not happy that he can not go outside evern temporary, no fever or chills, no cp or dyspnea, no nause or vomiting Physical Exam Vital Signs / I&Os Vital Signs Date Time Temp Pulse Resp B/P Pulse O2 O2 Flow FiO2 Ox Delivery Rate 10/24 0923 98 / 0726 98.1 67 18 109/64 98 Room Air 10/24 0303 98.1 61 18 95/50 98 Room Air / 2251 92/54 / 2248 98.1 58 18 86/55 99 Room Air 10/23 2100 Room Air / 1843 98.2 69 18 94/57 97 Room Air / 1352 98.8 69 18 108/67 95 I&O 10/24 0000 07/08 1600 07/08 0800 Intake Total 980 720 240 Output Total 200 725 Balance 780 -5 240 Lungs Clear to auscultation Cardiovascular Regular rate and rhythm, Normal S1 and S2, No murmurs, gallops, rubs Abdomen Normal bowel sounds, Soft, No tenderness Extremities No edema Assessment and Plan Problem List 1. COPD (chronic obstructive pulmonary disease) Plan controlled waiting for SNIF 2. HTN (hypertension) Plan as above 3. CAD (coronary artery disease) Plan stable
[2016-10-24 11:04] VITALS: BP 94/56
[2016-10-24 14:40] VITALS: BP 117/79
[2016-10-24 18:05] VITALS: BP 93/57
[2016-10-24 22:45] VITALS: BP 91/53
[2016-10-25 02:26] VITALS: BP 104/62
[2016-10-25 07:21] VITALS: BP 110/62
--- NOTE | 2016-10-25 08:12 | Progress Note ---
Subjective General his is a 66-year-old white male who developed abdominal pain for last 5 days along with nausea. He also vomited twice. Normal bowel movements. No fever but had some chills. Patient also mildly confused. Patient was dropped off by her family to the emergency room. Doing fine no cp or dyspnea, no nausea or vomiting, no fever or chills Physical Exam Vital Signs / I&Os Vital Signs Date Time Temp Pulse Resp B/P Pulse O2 O2 Flow FiO2 Ox Delivery Rate 10/25 0721 97.9 64 18 110/62 96 Room Air 0.0 10/25 0226 98.4 69 16 104/62 96 Room Air 10/24 2245 98.8 62 20 91/53 96 Room Air 10/24 1937 Room Air 10/24 1805 98.1 70 20 93/57 96 Room Air 10/24 1440 98.2 71 20 117/79 97 Room Air 10/24 1104 98.2 69 20 94/56 98 Room Air 10/24 0923 98 I&O 10/25 0000 /09 1600 10/24 0800 Intake Total 485 600 250 Output Total 350 350 Balance 135 600 -100 Lungs Clear to auscultation Cardiovascular Regular rate and rhythm, Normal S1 and S2, No murmurs, gallops, rubs Abdomen Normal bowel sounds, Soft, No tenderness Extremities No edema Assessment and Plan Problem List 1. COPD (chronic obstructive pulmonary disease) Plan controlled waiting for SNIF placement 2. HTN (hypertension) Plan as above 3. CAD (coronary artery disease) Plan stable
--- NOTE | 2016-10-25 09:17 | NUR ---
PATIENT SITTING UP IN CHAIR FOR BREAKFAST. PLEASANT AND COOPERATIVE. NO C/O PAIN.
[2016-10-25 10:54] VITALS: BP 101/60
[2016-10-25 14:28] VITALS: BP 91/53
[2016-10-25 18:05] VITALS: BP 96/51
--- NOTE | 2016-10-25 18:23 | NUR ---
PATIENT IS RESTINGN IN ROOM NOW WATCHING TV. IN NO DISTRESS. HAS HAD NO COMPLAINTS TODAY, PT IS IN A HAPPY MOOD.
[2016-10-25 22:45] VITALS: BP 98/62
[2016-10-26] VITALS (7 sets, daily range): BP systolic 83–123; BP diastolic 44–80
--- NOTE | 2016-10-26 02:52 | NUR ---
Pt. is resting in bed at this time. Cooperative, pleasant during all care. Pt. states he was feeling a little anxious/could not sleep, so he requested his prn diazepam. Administered to pt. Denies pain or discomfort. Call light within reach.
--- NOTE | 2016-10-26 07:32 | Progress Note ---
Subjective General Note Date: 10/26/2016 Admission Date: 10/16/2016 Hospital Day: 11 PCP: Giselle Avila Status: Inpatient acute care Advanced Directive: No code Room: 206 Brief admission history and progress 66-year-old white male with a medical history of COPD, CAD, hypertension, GERD, parkinsonian disease who had developed abdominal pain, nausea, vomiting 5 days prior to his admission. Patient was seen at [facility] ED on 7 10/16/2016. Patient was found to be dehydrated with associated abdominal pain. Patient was also dropped off at the emergency department without transportation home. Patient had developed dehydration leading to associated abdominal pain. Patient was hydrated and maintain on appropriate fluid balances. All home medication was continued for the care of his hypertension, COPD and Parkinson's disease. Patient normalized and diet, ambulated without concern. Patient has also had ongoing concern infusion and signs of dementia. Patient was unable to be transported back to his usual and customary home due to mental status and confusion. Family is unable to take care of patient. Therefore, patient was maintained in the hospital record for up to 11 days. Patient was under web content & social media manager for aid in establishing a home. Home care was not available. Patient was found to be appropriate for long-term care facility. Subjective Patient seen at bedside. No complaints today. No palpitations. No shortness of breath. No chest pain, no abdominal pain. Constitutional Denies: Fever, Chills. Eyes Denies: Vision Change. Respiratory Denies: SOB w/exertion. Physical Exam Vital Signs / I&Os Vital Signs Date Time Temp Pulse Resp B/P Pulse O2 O2 Flow FiO2 Ox Delivery Rate 10/26 0658 97.7 59 16 102/62 96 Room Air 10/26 0250 0.0 10/26 0234 98.4 59 16 110/80 99 Room Air 10/25 2245 98.1 57 18 98/62 100 Room Air 10/25 1805 98.2 67 18 96/51 97 Room Air 10/25 1428 98.1 65 18 91/53 98 Room Air 10/25 1054 98.4 63 18 101/60 96 Room Air 0.0 10/25 0955 96 I&O 10/25 0800 10/25 1600 10/26 0000 Intake Total 125 1080 605 Output Total 0 700 700 Balance 125 380 -95 General Appearance Oriented X3, Cooperative Lungs Clear to auscultation Cardiovascular Regular rate and rhythm Extremities No cyanosis, No clubbing Neurological Normal speech Psych/Mental Status Confused, mood is normal Assessment and Plan Problem List 1. HTN (hypertension) Plan Blood pressure well controlled. No changes. 2. GERD (gastroesophageal reflux disease) Plan Patient on appropriate bowel prophylaxis 3. Parkinson disease Plan No acute changes. Stable 4. COPD (chronic obstructive pulmonary disease) Plan Stable airway Continue with home inhalers 5. CAD (coronary artery disease) Plan Stable. No changes On medical optimization. Current status: Fair Anticipated discharge date: 24-48 hours Anticipated discharge placement: Long-term care facility Patient care time: Time spent in chart review, patient interview, physical exam, CPOE, and care documentation: 30 minutes Visit to patient today: 1 Complexity of care: Mild to moderate E&M Codes Rounding: Inpt-Moderate/[id number]
--- NOTE | 2016-10-26 11:42 | NUR ---
pt sitting in chair upon entering room. pt completed sit to stand no AD and was steady on his feet. pt ambulated 5ft with no AD and had 2 LOB but able to correct LOB I. pt ambulated with quad cane 10ft but pt stated he did not like using the quad cane. pt used FWW to ambulated around the bed and was slow but steady on his feet. pt given v/c to not have heavy UE support on FWW and to use for balance only. pt requested to complete bed exercises. Sit to supine SBA. pt completed 7reps of the following bridges, quad sets, glute sets, HS sets and hip abduction. pt is safe to transfer bed <=> chair I but any ambulation needs SBA and use of FWW. pt recommended to d/c to [facility] with HHPT.
--- NOTE | 2016-10-26 12:17 | NUR ---
NUTRITION FOLLOW UP NOTE: Pt continues to eating ~50-100 of general diet. Pt is awaiting placment. RD avail for further consult if desired and will follow up prn.
--- NOTE | 2016-10-26 13:49 | NUR ---
PATIENT CONTINUES TO HAVE BORDERLINE LOW BP AND LOW HR. CONTINUES ON METOPROLOL AND LISINOPRIL. NOTIFIED MD AND MD STATED HE WILL DECREASE BOTH MEDS DOSES. WILL CONTINUE TO MONITOR.
[2016-10-27 02:06] VITALS: BP 99/51
--- NOTE | 2016-10-27 02:28 | NUR ---
Pt. is resting in bed at this time. Denies discomfort. Oriented to self and place. Pleasant and cooperative with care. No IV access, MD is aware. Bed alarm on for safety.
[2016-10-27 06:32] VITALS: BP 107/63
--- NOTE | 2016-10-27 06:47 | Progress Note ---
Subjective General Note Date: 10/27/2016 Admission Date: 10/16/2016 Hospital Day: 12 PCP: Giselle Avila Status: Inpatient acute care Advanced Directive: No code Room: 206 Brief admission history and progress This is a 66-year-old white male with a medical history of COPD, CAD, hypertension, GERD, parkinsonian disease who had developed abdominal pain, nausea, vomiting 5 days prior to his prior to being seen at the [facility] ED on 7 2016. Patient was found to be dehydrated with associated abdominal pain. Of note the patient was dropped off at the emergency department without transportation home by a family member. Patient was hydrated and maintained on appropriate fluid balances. All home medication was continued for the care of his hypertension, COPD and Parkinson's disease. Patient normalized and diet, ambulated without concern. Patient has also had ongoing concern infusion and signs of dementia. Patient was unable to be transported back to his usual and customary home due to alterations in his mental state and associated confusion. Family is unable to take care of patient. Therefore, patient was maintained in the hospital record for up to 12 days. Patient was under social security specialist for aid in establishing a home. Home care was not available. Patient was found to be appropriate for long-term care facility. Subjective: States that he has difficulty with changes. He is asking not to be transported. Patient states that he would just like to go fishing and not be told what he can and can not do. Patient has no other complaints today. Constitutional Denies: Fever, Chills. Eyes Denies: Pain, Vision Change. Respiratory Denies: SOB w/exertion, Wheezing. Cardiovascular Denies: Palpitations, Orthopnea. Gastrointestinal Denies: Abdominal Pain. Neurological Denies: Numbness, Incoordination. Physical Exam Vital Signs / I&Os Vital Signs Date Time Temp Pulse Resp B/P Pulse O2 O2 Flow FiO2 Ox Delivery Rate 10/27 0632 98.2 61 18 107/63 92 Room Air 10/27 0206 98.1 57 14 99/51 95 Room Air 0.0 10/26 2322 0.0 10/26 2228 98.1 65 16 92/44 96 Room Air 0.0 10/26 1827 98.8 69 18 123/58 98 Room Air 10/26 1400 98.4 64 18 116/58 95 Room Air 10/26 1221 79 95/62 10/26 1048 98.4 69 18 83/50 95 Room Air 10/26 0956 96 10/26 0658 97.7 59 16 102/62 96 Room Air I&O 10/26 0800 10/26 1600 10/27 0000 Intake Total 125 720 360 Output Total 250 550 800 Balance -125 170 -440 General Appearance Cooperative, No acute distress HEENT EOMI Lungs Clear to auscultation, Normal air movement Neck Supple Cardiovascular Normal S1 and S2 Extremities No edema Neurological No lateralizing signs, resting tremor Psych/Mental Status Confused Assessment and Plan Problem List 1. HTN (hypertension) Plan Blood pressures well controlled on current therapy. No changes 2. GERD (gastroesophageal reflux disease) Plan No complaints of pain. Patient has normal appetite. 3. Parkinson disease Plan No changes; follow-up with primary care for appropriate therapy. 4. COPD (chronic obstructive pulmonary disease) Plan Patient is stable on room air. Monitor airway. Continue with her home inhalers 5. CAD (coronary artery disease) Plan Continue to monitor, maintain. Current status: Fair Anticipated discharge date: 10/27/2016 Anticipated discharge placement: Long-term care facility Patient care time: Time spent in chart review, patient interview, physical exam, CPOE, and care documentation: 35-40 minutes Visit to patient today: 1 Complexity of care: Mild to moderate
--- NOTE | 2016-10-27 06:51 | Discharge Summary ---
Discharge Summary Report Admit Date 10/16/16 Discharge Date 10/27/16 Admission Diagnosis 1. Epigastric pain 2. Dehydration 3. COPD (chronic obstructive pulmonary disease) 4. HTN (hypertension) 5. Parkinson disease Discharge Diagnosis 1. Epigastric pain 2. Dehydration 3. COPD (chronic obstructive pulmonary disease) 4. HTN (hypertension) 5. Parkinson disease Brief History See HPI from the 10/16/16 H&P. Hospital Course This is a 66-year-old white male with a medical history of COPD, CAD, hypertension, GERD, parkinsonian disease who had developed abdominal pain, nausea, vomiting 5 days prior to his prior to being seen at the [facility] ED on 2016. Patient was found to be dehydrated with associated abdominal pain. Of note the patient was dropped off at the emergency department without transportation home by a family member. Patient was hydrated and maintained on appropriate fluid balances. All home medication was continued for the care of his hypertension, COPD and Parkinson's disease. Patient normalized and diet, ambulated without concern. Patient has also had ongoing concern infusion and signs of dementia. Patient was unable to be transported back to his usual and customary home due to alterations in his mental state and associated confusion. Family is unable to take care of patient. Therefore, patient was maintained in the hospital record for up to 12 days. Patient was under director social welfare for aid in establishing a home. Home care was not available. Patient was found to be appropriate for long-term care facility. General Appearance Cooperative, No acute distress HEENT EOMI Lungs Normal air movement Cardiovascular Normal S1, Normal S2 Neurological Cranial nerves 3-12 NL Discharge Instructions/Meds Patient is being discharged to long-term care facility. It is also necessary for patient to follow-up with his primary care provider, Dr. Avila to manage all medical concerns which include the hypertension, COPD, CAD, Parkinson's and GERD. Continue with the home medication including; 1. Aspirin 325 by mouth daily 2. Plavix 75 mg by mouth daily 3. Lisinopril 2.5 mg by mouth daily 4. Zoloft 100 mg by mouth daily 5. Metoprolol; Lopressor 25 mg by mouth twice a day 6. Albuterol HFA 1-2 puffs every 4 hours as needed for wheeze 7. Levodopa carbidopa 25 mg carbidopa/100 mg levodopa 1 tab by mouth daily 8. Diazepam 5 mg by mouth 1-2 times a day as needed for anxiety 9. Pantoprazole 40 mg by mouth daily. For other recommendations regarding discharge diet, activity, followup, and discharge medications please see the patient's discharge instructions. Discharge condition: Good Greater than 30 min. was spent in the patient's discharge preparation including discharge interview and physical examination, progress note, discharge instructions, and discharge summary The patient was interviewed and examined on the day of discharge. Return to the emergency department or in care clinic with signs or respiratory distress, changes in mental status, shortness of breath, tachycardia, or any other emergent concern
[2016-10-27] MEDS ORDERED: ZESTRIL2.5 MG PO (08:33)
[2016-10-27] MEDS ORDERED: SERTRALINE HCL25 MG PO (08:35)
--- NOTE | 2016-10-27 08:36 | Provider's Discharge Care Plan ---
Problem, Goal, Plan Problem List 1. Dehydration Goals: Prevent disease progress, Screening, Therapeutic intervention Instructions: Follow up as needed, maintain adequate hydration 2. Epigastric pain Goals: Improve disease control, Prevent disease progress, Therapeutic intervention Instructions: Follow up as needed, continue the pantoprazole 40 mg by mouth daily 3. COPD (chronic obstructive pulmonary disease) Goals: Diagnostic testing, Prevent disease progress, Screening Instructions: Follow up as directed, Take meds as directed 4. CAD (coronary artery disease) Goals: Prevent disease progress, Screening Instructions: Follow up as directed 5. HTN (hypertension) Goals: Prevent disease progress, Therapeutic intervention Instructions: Take meds as directed 6. GERD (gastroesophageal reflux disease) Goals: Prevent disease progress, Therapeutic intervention Instructions: pantoprazole 40 mg daily 7. Parkinson disease Goals: Learn about illness, Prevent disease progress, Therapeutic intervention Instructions: Follow up as directed 8. Dementia Goals: Screening, Therapeutic intervention Instructions: long-term care facility
--- NOTE | 2016-10-27 09:30 | NUR ---
PATIENT UP IN CHAIR FOR BREAKFAST. SPOKE WITH CORRESPONDENCE SECTION SUPERVISOR AND AGREED TO GO TO [facility] TODAY. DENIES PAIN. ALERT AND PLEASANT. LUNGS CLEAR, ON RA. USING URINAL. SBA IN ROOM. HAS DC ORDERS THIS AM AND PLAN IS TO DC WHEN ABLE. NO IV ACCESS.
[2016-10-27] MEDS ORDERED: DIAZEPAM2 MG PO (11:01)
[2016-10-27] MEDS ORDERED: LOPRESSOR25 MG PO (11:01)
[2016-10-27] MEDS ORDERED: CARBIDOPA/LEVOD1 TA1 PO (11:01)
[2016-10-27] MEDS ORDERED: ASPIRIN ADULT L81 MG PO (11:01)
[2016-10-27] MEDS ORDERED: ADVAIR DISKU1 INH (11:01)
[2016-10-27] MEDS ORDERED: PANTOPRAZOLE SO40 MG PO (11:01)
[2016-10-27] MEDS ORDERED: PLAVIX75 MG PO (11:01)
[2016-10-27] MEDS ORDERED: PROAIR HFA IN (11:01)
--- NOTE | 2016-10-27 11:32 | NUR ---
pt d/c'd. no PT
[2016-10-27 14:37] VITALS: BP 103/60
[2016-10-27 18:16] VITALS: BP 96/60
[2016-10-27 22:42] VITALS: BP 112/63
--- NOTE | 2016-10-27 22:54 | NUR ---
VSS. A&OX4. SEE DISCHARGE PLANNING NOTE. PT UNABLE TO DISCHARGE TO [facility] THIS EVENING R/T INSURANCE COVERAGE OF MEDICATIONS. PLAN IS FOR DISCHARGE TO [facility] TOMORROW PENDING MEDICATION REFILL. PT PLEASANT, CALM AND COOPERATIVE THIS SHIFT. WCTM.
--- NOTE | 2016-10-28 00:55 | NUR ---
PT A&O X3 BUT SOMEWHAT FORGETFUL. LS CLEAR, ON RA. BT PRESENT IN ALL QUADS. DENIES PAIN. NO EDEMA PRESENT. REMINDED TO USE CALL LIGHT WHENEVER HE NEEDS ASSISTANCE. VSS. RESTING COMFORTABLY IN BED.
[2016-10-28 02:28] VITALS: BP 98/66
[2016-10-28 06:26] VITALS: BP 104/68
--- NOTE | 2016-10-28 08:22 | NUR ---
PATIENT UP TO CHAIR FOR BREAKFAST. BED/CHAIR ALARMS ON DUE TO IMPULSIVENESS AND FALL RISK. DENIES PAIN. NO SKIN ISSUES. ON RA, LUNGS CLEAR. NO IV ACCESS. USING URINAL. NO EDEMA. WILL CONTINUE TO MONITOR.
--- NOTE | 2016-10-28 09:25 | Progress Note ---
Subjective General Note Date: 10/28/2016 Admission Date: 10/16/2016 Hospital Day: 13 PCP: Giselle Avila Status: Inpatient acute care Advanced Directive: No code Room: 206 Subjective: Patient rested well overnight. No complaints today. Patient with good appetite. No shortness of breath, palpitations, abdominal pain, nausea, vomiting, diarrhea. Awaiting discharge. Constitutional Denies: Fever. Respiratory Denies: SOB w/exertion. Cardiovascular Denies: Palpitations. Physical Exam Vital Signs / I&Os Vital Signs Date Time Temp Pulse Resp B/P Pulse O2 O2 Flow FiO2 Ox Delivery Rate 10/28 0626 98.2 70 18 104/68 94 10/28 0228 98.8 65 14 98/66 96 Room Air 10/28 0050 Room Air 10/27 2242 98.2 63 16 112/63 97 Room Air 0.0 10/27 1816 98.4 71 18 96/60 95 Room Air 10/27 1600 Room Air 10/27 1437 98.2 63 18 103/60 95 Room Air I&O 10/27 0800 10/27 1600 10/28 0000 Intake Total 350 600 Output Total 300 Balance 50 600 General Appearance Oriented X3 Lungs Clear to auscultation Cardiovascular Normal S1 and S2 Assessment and Plan Problem List 1. COPD (chronic obstructive pulmonary disease) Plan Continue with the home inhalers. 2. HTN (hypertension) Plan Stable 3. CAD (coronary artery disease) Plan Continue on current cardiac optimization 4. Dementia Plan Underlying dementia preventing discharged to regular previous home. Patient will be long-term care 5. Anxiety Plan Anxiety, likely a function of his current situation. Patient awaiting discharge. Current status: Fair Anticipated discharge date: Today Anticipated discharge placement: Long-term care facility Patient care time: Time spent in chart review, patient interview, physical exam, CPOE, and care documentation: 20-30 minutes Visit to patient today: 1 Complexity of care: Moderate E&M Codes Rounding: Inpt-Moderate/[id number]
[2016-10-28 10:25] VITALS: BP 96/59
[2016-10-28 14:25] VITALS: BP 91/47
--- NOTE | 2016-10-28 17:57 | NUR ---
I discussed with the patient their current medications, possible side effects, and answered questions.
[2016-10-28 18:25] VITALS: BP 106/69
--- NOTE | 2016-10-28 19:26 | NUR ---
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
== END 2016-10-28 19:25 | disposition home or self-care (01) ==
LOC: ED SRH 13:09 → TRANS SRH 17:31 → ACUTE2 SRH 17:31 → TRANS SRH 17:31 → ACUTE2 SRH 17:31 → TRANS SRH 18:10 → ACUTE2 SRH 18:10
PROVIDERS: ADMIT Neuromusculoskeletal Medicine, Sports Medicine
DX: E86.0 Dehydration (principal); R10.13 Epigastric pain; R11.2 Nausea with vomiting, unspecified; G31.83 Neurocognitive disorder with Lewy bodies; F02.80 Dementia in other diseases classified elsewhere, unspecified severity, without behavioral disturbance, psychotic disturbance, mood disturbance, and anxiety; F41.9 Anxiety disorder, unspecified; I10 Essential (primary) hypertension; J44.9 Chronic obstructive pulmonary disease, unspecified; I25.10 Atherosclerotic heart disease of native coronary artery without angina pectoris; Z79.82 Long term (current) use of aspirin; Z79.02 Long term (current) use of antithrombotics/antiplatelets; K21.9 Gastro-esophageal reflux disease without esophagitis; Z74.2 Need for assistance at home and no other household member able to render care
CPT/HCPCS: 29230; 29243; 29244; 29247; 29251; 29259; 29263; 90004; 90047; 90074; 90098; 90100; 90616; 91320; 91556; 91585; 92010; 92530; 92610; 92720; 92760; 92761; 92762; 92763; 92764; 92765; 92766; 92767; 93004; 93140; 95059